=== PATIENT | male | born 1950 | race Caucasian/White ===

== ENCOUNTER → 2016-12-10 | Outpatient (REF) | payer MEDICARE, OTHER ==
[~2016-12-10] MED LIST: /WARF25TA; ACET65TA; ALBU17IN INH; ALBU83IN INH; ALTA10CA; ALTA10CA3 PO; BREO1INH3 INH; EPIP0.3I2 IM; FLOM5CAP PO; LIPI10TA; LIPI10TA PO; MOME50SP; NORT25CA2 PO; PERC5TAB8; PERC7.5T8; PROZ10CA; PROZ40CA; PROZ40CA PO; QVAR80AE7 IN; SENO8.6T5
[2016-12-10 11:25] LABS: BASO % 0.5 % (0.0-1.0); EOS # 0.1 K/mm3 (0.0-0.50); LARGE UNSTAINED CELL # 0.1 K/mm3 (0.0-0.4); LARGE UNSTAINED CELL % 1.8 % (0.0-4.0); LYMPH # 2.2 K/mm3 (1.5-4.5); LYMPH % 30.4 % (24.0-44.0); MEAN CORPUSCULAR HEMOGLOBIN 31.8 pg (27.0-33.0); MEAN CORPUSCULAR VOLUME 93.6 fl (80.0-96.0); MONO # 0.5 K/mm3 (0.0-0.8); MONO % 6.4 % (0.0-5.0); NEUTROPHILS # 4.1 K/mm3 (1.8-7.7); NEUTROPHILS % 58.9 % (36.0-66.0); PLATELET COUNT, AUTOMATED 229 k/mm3 (150-450)
[2016-12-10 11:28] LABS: INR 0.96
[2016-12-10 11:40] LABS: ALBUMIN/GLOBULIN RATIO 1.29 (1.00-1.93); ALKALINE PHOSPHATASE 74 U/L (45-117); ALT/SGPT 24 U/L (12-78); ANION GAP 8 MEQ/L (8-16); AST/SGOT 24 U/L (15-37); BILIRUBIN,TOTAL 0.7 MG/DL (0.2-1.0); BLOOD UREA NITROGEN 19 MG/DL (7-18); CALCIUM LEVEL 8.6 MG/DL (8.8-10.2); CARBON DIOXIDE LEVEL 30 MEQ/L (21-32); CHLORIDE LEVEL 103 MEQ/L (98-107); CREATININE FOR GFR 1.02 MG/DL (0.70-1.30); GLOMERULAR FILTRATION RATE > 60.0 (>49); GLUCOSE, FASTING 113 MG/DL (80-110); POTASSIUM SERUM 4.1 MEQ/L (3.5-5.1); SODIUM LEVEL 141 MEQ/L (136-145); TOTAL PROTEIN 7.1 GM/DL (6.4-8.2)
== END ==
LOC: M SFHCPLAZ 09:41
PROVIDERS: ATTEND Family Medicine
DX: Z01.818 Encounter for other preprocedural examination (principal); G47.33 Obstructive sleep apnea (adult) (pediatric); Z79.899 Other long term (current) drug therapy
CPT/HCPCS: 36415; 80053; 85025; 85610; 85730; 93005; G0463

== ENCOUNTER → 2016-12-28 | Day surgery (SDC) | payer MEDICARE, BC, OTHER ==
[~2016-12-28] VITALS: Ht 167.6 cm; Wt 93.0 kg
[~2016-12-28] MED LIST changes: +BUPIVACAINE HCL 0.5% 10 ML VIAL As Ordered ONE; +BUPIVACAINE/EPIN 0.5% 30 ML VIAL As Ordered ONE; +GLYCOPYRROLATE INJ 0.2 MG/ML 2 ML VIAL As Ordered ONE; +HYDROmorphone HCL 1 MG/ML SYRINGE (J1170) IV PRN; +LIDOCAINE 2% INJ 100 MG/5 ML SDV (FOR ANES.) As Ordered ONE; +LIDOCAINE W/EPINEPHRINE 1% 20ML VIAL As Ordered ONE; +LR 1,000 ML IV SCH; +MIDAZOLAM INJ 2 MG/2 ML VIAL (J2250) As Ordered ONE; +MORPHINE 10 MG/ML 1ML VIAL IV PRN; +NEOSTIGMINE 1MG/ML 5 ML SYRINGE (J2710) As Ordered ONE; +NORCO, ANEXSIA 5/325MG TABLET (HYDROcodone/ACETAMINOPHEN) As Ordered ONE; +NORCO, ANEXSIA 5/325MG TABLET (HYDROcodone/ACETAMINOPHEN) PO ONE; +ONDANSETRON 4MG/2ML VIAL (J2405) As Ordered ONE; +ONDANSETRON 4MG/2ML VIAL (J2405) IV PRN; +PERCOCET 5MG/325MG TAB PO PRN; +PROPOFOL 200 MG/20 ML VIAL As Ordered ONE; +ROCURONIUM BROMIDE 50 MG/5 ML VIAL As Ordered ONE; +dexameTHASONE 4 MG/ML 1ML VIAL (J1100) As Ordered ONE; +fentaNYL 100 MCG/2 ML INJECTION (J3010) IV PRN; +fentaNYL 250 MCG/5 ML INJECTION (J3010) As Ordered ONE
--- NOTE | 2016-12-28 11:36 | RO ---
DATE OF PROCEDURE: 12/28/2016 PREPROCEDURE DIAGNOSIS: Sleep apnea. POSTPROCEDURE DIAGNOSIS: Sleep apnea. PROCEDURE: Lateral pharyngoplasty. SURGEON: Anastacio Quintero MD PRODUCTION ANALYST: ANESTHESIA: DESCRIPTION OF PROCEDURE: Under general anesthesia with the patient intubated, the patient was draped in the usual manner. I infiltrated the area with lidocaine, epinephrine and Marcaine. A Walsh-Homero mouth gag was inserted. Because of the size of the mouth, I had to reposition the blade long term through the procedure. I started first on the left side. I made an incision using the Coblator and dissecting down to the tonsil and then dissected the tonsil free. This using a setting of 6 and 4. I cauterized the base at a setting of 6 and 4. Then using the cautery, I elevated a muscle flap from the posterior pillar. I dissected the flap from inferior to superior. I put a suture within the flap using a #3-0 Vicryl. I then sutured the posterior to the molar of the left side of the maxilla. The patient tolerated the procedure well. I did trim the uvula because it was long. I then repositioned the blade and performed the same procedure on the opposite side. Any areas of bleeding I used the Coblator at 6 and 4. Once this was completed, I passed a nasogastric tube to suction the upper esophagus. The patient tolerated the procedure well and was extubated and transferred to the recovery room in excellent condition. No blood loss.
[2016-12-28 13:20] VITALS: BP 177/98
== END | disposition home or self-care (01) ==
LOC: M SDC 06:45
PROVIDERS: ATTEND Otolaryngology
DX: G47.30 Sleep apnea, unspecified (principal); I10 Essential (primary) hypertension; E78.5 Hyperlipidemia, unspecified; K44.9 Diaphragmatic hernia without obstruction or gangrene; J45.909 Unspecified asthma, uncomplicated; Z79.51 Long term (current) use of inhaled steroids; N40.0 Benign prostatic hyperplasia without lower urinary tract symptoms; Z88.0 Allergy status to penicillin; Z79.899 Other long term (current) drug therapy; K21.9 Gastro-esophageal reflux disease without esophagitis; F32.9 Major depressive disorder, single episode, unspecified
CPT/HCPCS: 42826; 88302; J1100; J2250; J2405; J2710; J3010

== ENCOUNTER → 2017-01-13 | Outpatient (REF) | payer MEDICARE, OTHER ==
[~2017-01-13] MED LIST changes: -BUPIVACAINE HCL 0.5% 10 ML VIAL As Ordered ONE; -BUPIVACAINE/EPIN 0.5% 30 ML VIAL As Ordered ONE; -GLYCOPYRROLATE INJ 0.2 MG/ML 2 ML VIAL As Ordered ONE; -HYDROmorphone HCL 1 MG/ML SYRINGE (J1170) IV PRN; -LIDOCAINE 2% INJ 100 MG/5 ML SDV (FOR ANES.) As Ordered ONE; -LIDOCAINE W/EPINEPHRINE 1% 20ML VIAL As Ordered ONE; -LR 1,000 ML IV SCH; -MIDAZOLAM INJ 2 MG/2 ML VIAL (J2250) As Ordered ONE; -MORPHINE 10 MG/ML 1ML VIAL IV PRN; -NEOSTIGMINE 1MG/ML 5 ML SYRINGE (J2710) As Ordered ONE; -NORCO, ANEXSIA 5/325MG TABLET (HYDROcodone/ACETAMINOPHEN) As Ordered ONE; -NORCO, ANEXSIA 5/325MG TABLET (HYDROcodone/ACETAMINOPHEN) PO ONE; -ONDANSETRON 4MG/2ML VIAL (J2405) As Ordered ONE; -ONDANSETRON 4MG/2ML VIAL (J2405) IV PRN; -PERCOCET 5MG/325MG TAB PO PRN; -PROPOFOL 200 MG/20 ML VIAL As Ordered ONE; -ROCURONIUM BROMIDE 50 MG/5 ML VIAL As Ordered ONE; -dexameTHASONE 4 MG/ML 1ML VIAL (J1100) As Ordered ONE; -fentaNYL 100 MCG/2 ML INJECTION (J3010) IV PRN; -fentaNYL 250 MCG/5 ML INJECTION (J3010) As Ordered ONE
[2017-01-13 13:12] LABS: ALBUMIN 3.5 GM/DL (3.2-5.2); ALBUMIN/GLOBULIN RATIO 1.17 (1.00-1.93); ALKALINE PHOSPHATASE 75 U/L (45-117); ALT/SGPT 28 U/L (12-78); ANION GAP 8 MEQ/L (8-16); AST/SGOT 21 U/L (15-37); BILIRUBIN,TOTAL 0.3 MG/DL (0.2-1.0); BLOOD UREA NITROGEN 19 MG/DL (7-18); CARBON DIOXIDE LEVEL 29 MEQ/L (21-32); CHLORIDE LEVEL 102 MEQ/L (98-107); CHOLESTEROL LEVEL 131 MG/DL (<200); CREATININE FOR GFR 0.93 MG/DL (0.70-1.30); FREE T4 0.99 NG/DL (0.76-1.46); GLOMERULAR FILTRATION RATE > 60.0 (>49); GLUCOSE, FASTING 96 MG/DL (80-110); POTASSIUM SERUM 4.3 MEQ/L (3.5-5.1); SODIUM LEVEL 139 MEQ/L (136-145); TOTAL PROTEIN 6.5 GM/DL (6.4-8.2); TRIGLYCERIDES LEVEL 209 MG/DL (<150)
== END ==
LOC: M SFHCPLAZ 08:25
PROVIDERS: ATTEND Family Medicine
DX: E78.5 Hyperlipidemia, unspecified (principal); R73.01 Impaired fasting glucose; N40.1 Benign prostatic hyperplasia with lower urinary tract symptoms; Z12.5 Encounter for screening for malignant neoplasm of prostate
CPT/HCPCS: 36415; 80053; 80061; 83036; 84439; 84443; G0103

== ENCOUNTER → 2017-01-24 | Outpatient (CLI) | payer MEDICARE, BC, OTHER ==
--- NOTE | 2017-01-24 14:18 | REP ---
MR BRAIN WITHOUT AND WITH CONTRAST: 01/24/2017 COMPARISON: 01/15/2016, 06/25/2013, CT brain 07/19/2013. CLINICAL HISTORY: Status post resection of pituitary adenoma. TECHNIQUE: Sagittal T1 with axial T2 and FLAIR, diffusion weighted images and ADC mapping sequences and a thin section coronal T1 sequence through the pituitary fossa. After infusion of 9 mL of ProHance (half-dose because of GFR less than 60) post gadolinium T1 axial coronal and sagittal images were obtained. FINDINGS: The ventricles are midline symmetric and dilated. They are out of proportion to the mild cerebral atrophy. Third and fourth ventricles are also dilated but all of this for ventricular size and appearance is unchanged from the prior studies. There is some punctate periventricular deep central and subcortical white matter hyperintense T2 and FLAIR foci bilaterally in the cerebral hemispheres. This represents some small vessel ischemic change. No acute infarct, intraparenchymal mass, mass effect, hemorrhage or edema. No extra-axial fluid collection noted. Cortical stripe preserved. The patient is status post a transsphenoidal pituitary resection with the appearance of the pituitary fossa and optic chiasm unchanged. There is thinning of the corpus callosum by the distended ventricular system. There is very mild cerebellar atrophy with basal cisterns intact and no posterior fossa hemorrhage. Seventh/eighth cranial nerve complexes and mastoids symmetric and normal. The visualized sinuses show a few anterior ethmoid air cells with mucosal thickening. After contrast administration, there is no abnormal enhancement of the pituitary fossa or elsewhere. The base of the brain, meninges, vascular structures, soft tissues about the orbits and visualized face were also without abnormal enhancement. No enhancing mass. IMPRESSION: 1. Stable exam with prior resection of the pituitary adenoma with a small amount of residual pituitary tissue in the sella unchanged. 2. No evidence of new findings. There is dilatation of the lateral, third and fourth ventricles out of portion to very minimal atrophy. Presence of normal pressure hydrocephalous may again be suspected. 3. Some very minor periventricular deep white matter along the subcortical foci of hyperintense T2 and FLAIR signal suggesting small vessel ischemic change. Stable exam Signed by Christian Lane MD 01/24/2017 04:54 P
== END ==
LOC: M RAD 12:16
PROVIDERS: ATTEND Neurological Surgery
DX: D48.7 Neoplasm of uncertain behavior of other specified sites (principal)
CPT/HCPCS: 70553; A9576

== ENCOUNTER → 2017-05-05 | Outpatient (REF) | payer MEDICARE, OTHER ==
[~2017-05-05] MED LIST changes: -ALTA10CA3 PO; +ALTA1CAP4 PO; +QVAR1AER2 IN; -QVAR80AE7 IN
[2017-05-05 12:19] LABS: BASO % 0.3 % (0.0-1.0); EOS # 0.2 K/mm3 (0.0-0.50); EOS % 2.1 % (0.0-3.0); LARGE UNSTAINED CELL # 0.1 K/mm3 (0.0-0.4); LARGE UNSTAINED CELL % 1.9 % (0.0-4.0); LYMPH # 2.3 K/mm3 (1.5-4.5); LYMPH % 33.3 % (24.0-44.0); MEAN CORPUSCULAR HEMOGLOBIN 31.5 pg (27.0-33.0); MEAN CORPUSCULAR HGB CONC 34.1 g/dl (32.0-36.5); MEAN CORPUSCULAR VOLUME 92.5 fl (80.0-96.0); MONO # 0.4 K/mm3 (0.0-0.8); NEUTROPHILS # 3.9 K/mm3 (1.8-7.7); NEUTROPHILS % 56.3 % (36.0-66.0); PLATELET COUNT, AUTOMATED 260 k/mm3 (150-450); RED CELL DISTRIBUTION WIDTH 12.6 % (11.5-14.5); WHITE BLOOD COUNT 6.9 K/mm3 (4.0-10.0)
[2017-05-05 12:57] LABS: ALBUMIN/GLOBULIN RATIO 1.18 (1.00-1.93); ALKALINE PHOSPHATASE 81 U/L (45-117); ALT/SGPT 19 U/L (12-78); ANION GAP 6 MEQ/L (8-16); AST/SGOT 24 U/L (15-37); BILIRUBIN,TOTAL 0.8 MG/DL (0.2-1.0); BLOOD UREA NITROGEN 24 MG/DL (7-18); CALCIUM LEVEL 8.9 MG/DL (8.8-10.2); CARBON DIOXIDE LEVEL 30 MEQ/L (21-32); CHLORIDE LEVEL 105 MEQ/L (98-107); CREATININE FOR GFR 0.92 MG/DL (0.70-1.30); GLOMERULAR FILTRATION RATE > 60.0 (>49); GLUCOSE, FASTING 93 MG/DL (80-110); POTASSIUM SERUM 4.3 MEQ/L (3.5-5.1); SODIUM LEVEL 141 MEQ/L (136-145); TOTAL PROTEIN 7.4 GM/DL (6.4-8.2)
== END ==
LOC: M SFHCPLAZ 09:04
PROVIDERS: ATTEND Family Medicine
DX: I10 Essential (primary) hypertension (principal); R73.01 Impaired fasting glucose; N40.1 Benign prostatic hyperplasia with lower urinary tract symptoms
CPT/HCPCS: 36415; 80053; 81001; 82043; 83036; 85025; G0103

== ENCOUNTER → 2017-06-06 | Outpatient (REF) | payer MEDICARE, OTHER ==
[2017-06-06 14:51] LABS: BASO % 0.2 % (0.0-1.0); EOS # 0.2 10^3/uL (0.0-0.50); IMMATURE GRANULOCYTE % 0.4 % (0-0); LYMPH # 2.6 10^3/uL (1.5-4.5); MEAN CORPUSCULAR HGB CONC 34.2 g/dl (32.0-36.5); MEAN CORPUSCULAR VOLUME 90.7 fl (80.0-96.0); MONO # 0.5 10^3/uL (0.0-0.8); NEUTROPHILS # 4.7 10^3/uL (1.8-7.7); NEUTROPHILS % 58.4 % (36.0-66.0); PLATELET COUNT, AUTOMATED 229 10^3/uL (150-450); RED CELL DISTRIBUTION WIDTH 12.4 % (11.5-14.5); WHITE BLOOD COUNT 8.1 10^3/uL (4.0-10.0)
[2017-06-06 15:35] LABS: ALBUMIN 3.8 GM/DL (3.2-5.2); PERCENT SATURATION 29.5 % (19.7-50.0)
== END ==
LOC: M LABDRWAD 12:19
PROVIDERS: ATTEND Orthopaedic Surgery
DX: Z01.818 Encounter for other preprocedural examination (principal); M16.12 Unilateral primary osteoarthritis, left hip; D63.8 Anemia in other chronic diseases classified elsewhere

== ENCOUNTER → 2017-09-15 | Outpatient (REF) | payer MEDICARE, OTHER ==
[2017-09-15 12:18] LABS: ESTIMATED AVERAGE GLUCOSE 114 MG/DL (60-110); HEMOGLOBIN A1c 5.6 %
[2017-09-15 12:28] LABS: ALBUMIN 3.8 GM/DL (3.2-5.2); ALBUMIN/GLOBULIN RATIO 1.06 (1.00-1.93); ALKALINE PHOSPHATASE 81 U/L (45-117); ALT/SGPT 18 U/L (12-78); ANION GAP 5 MEQ/L (8-16); AST/SGOT 17 U/L (7-37); BILIRUBIN,TOTAL 0.5 MG/DL (0.2-1.0); BLOOD UREA NITROGEN 26 MG/DL (7-18); C REACTIVE PROTEIN QUANTITATIV < 0.30 MG/DL (0.00-0.30); CALCIUM LEVEL 8.9 MG/DL (8.8-10.2); CARBON DIOXIDE LEVEL 31 MEQ/L (21-32); CHLORIDE LEVEL 105 MEQ/L (98-107); CHOLESTEROL LEVEL 210 MG/DL (<200); CPK CREATINE PHOSPHOKINASE 84 U/L (39-308); CREATININE FOR GFR 1.01 MG/DL (0.70-1.30); GLOMERULAR FILTRATION RATE > 60.0 (>49); GLUCOSE, FASTING 98 MG/DL (80-110); HDL CHOLESTEROL 56 MG/DL (>40); LDL CHOLESTEROL 110.8 MG/DL (<100); NON-HDL-C 154 MG/DL; POTASSIUM SERUM 4.3 MEQ/L (3.5-5.1); SODIUM LEVEL 141 MEQ/L (136-145); TOTAL PROTEIN 7.4 GM/DL (6.4-8.2); TRIGLYCERIDES LEVEL 216 MG/DL (<150)
== END ==
LOC: M SFHCPLAZ 08:10
DX: E78.5 Hyperlipidemia, unspecified (principal); R73.01 Impaired fasting glucose
CPT/HCPCS: 82550

== ENCOUNTER → 2017-09-22 | Outpatient (REF) | payer MEDICARE, OTHER | LOC: M SFHCPLAZ 09:18 | DX: N40.1 Benign prostatic hyperplasia with lower urinary tract symptoms (principal) | CPT/HCPCS: 84154 ==

== ENCOUNTER → 2017-09-23 | Outpatient (REF) | payer MEDICARE, OTHER ==
[2017-09-24 15:15] LABS: PSA % FREE 19.8 % (.); PSA FREE 0.93 ng/mL; PSA TOTAL 4.7 ng/mL (0.0-4.0)
== END ==
LOC: M SFHCPLAZ 13:02
DX: N40.1 Benign prostatic hyperplasia with lower urinary tract symptoms (principal)
CPT/HCPCS: 84154

== ENCOUNTER → 2017-11-29 | Outpatient (CLI) | payer MEDICARE, OTHER, BC | LOC: M ADAMS 11:24 | DX: J20.9 Acute bronchitis, unspecified (principal) | CPT/HCPCS: 71046 ==

== ENCOUNTER → 2018-01-09 | Outpatient (REF) | payer MEDICARE, OTHER ==
[2018-01-15 08:06] LABS: TITANIUM LEVEL SERUM/PLASMA <10.0 ng/mL (<10.0)
== END ==
LOC: M LABDRAWP 12:21
DX: N18.2 Chronic kidney disease, stage 2 (mild) (principal); R73.01 Impaired fasting glucose; R97.20 Elevated prostate specific antigen [PSA]; T56.891A Toxic effect of other metals, accidental (unintentional), initial encounter

== ENCOUNTER → 2018-01-09 | Outpatient (REF) | payer MEDICARE, OTHER ==
[2018-01-09 12:19] LABS: BASO % 0.5 % (0.0-1.0); EOS # 0.1 10^3/uL (0.0-0.50); EOS % 1.8 % (0.0-3.0); HEMATOCRIT 43.4 % (42.0-52.0); HEMOGLOBIN 14.7 g/dl (13.5-17.5); IMMATURE GRANULOCYTE % 0.4 % (0-3.0); LYMPH % 35.8 % (24.0-44.0); MEAN CORPUSCULAR HEMOGLOBIN 31.5 pg (27.0-33.0); MEAN CORPUSCULAR HGB CONC 33.9 g/dl (32.0-36.5); MEAN CORPUSCULAR VOLUME 92.9 fl (80.0-96.0); MONO # 0.4 10^3/uL (0.0-0.8); MONO % 7.2 % (0.0-5.0); NEUTROPHILS # 3.1 10^3/uL (1.8-7.7); NEUTROPHILS % 54.3 % (36.0-66.0); PLATELET COUNT, AUTOMATED 240 10^3/uL (150-450); RED BLOOD COUNT 4.67 10^6/uL (4.30-6.10); RED CELL DISTRIBUTION WIDTH 13.4 % (11.5-14.5); WHITE BLOOD COUNT 5.7 10^3/uL (4.0-10.0)
[2018-01-09 12:35] LABS: ESTIMATED AVERAGE GLUCOSE 131 MG/DL (60-110); HEMOGLOBIN A1c 6.2 %
[2018-01-09 12:47] LABS: ALBUMIN 3.9 GM/DL (3.2-5.2); ALBUMIN/GLOBULIN RATIO 1.18 (1.00-1.93); ALKALINE PHOSPHATASE 70 U/L (45-117); ALT/SGPT 19 U/L (12-78); ANION GAP 7 MEQ/L (8-16); AST/SGOT 22 U/L (7-37); BILIRUBIN,TOTAL 0.7 MG/DL (0.2-1.0); BLOOD UREA NITROGEN 21 MG/DL (7-18); CALCIUM LEVEL 8.8 MG/DL (8.8-10.2); CARBON DIOXIDE LEVEL 27 MEQ/L (21-32); CHLORIDE LEVEL 107 MEQ/L (98-107); CREATININE FOR GFR 1.06 MG/DL (0.70-1.30); GLOMERULAR FILTRATION RATE > 60.0 (>49); GLUCOSE, FASTING 104 MG/DL (70-100); MAGNESIUM LEVEL 2.3 MG/DL (1.8-2.4); POTASSIUM SERUM 4.2 MEQ/L (3.5-5.1); PROSTATIC SPECIFIC AG MONITOR 3.69 NG/ML (< 4.0); SODIUM LEVEL 141 MEQ/L (136-145); TOTAL PROTEIN 7.2 GM/DL (6.4-8.2)
[2018-01-11 14:15] LABS: INSULIN LEVEL 18.8 uIU/mL (2.6-24.9)
== END ==
LOC: M SFHCPLAZ 08:58
DX: N18.2 Chronic kidney disease, stage 2 (mild) (principal); R73.01 Impaired fasting glucose; R97.20 Elevated prostate specific antigen [PSA]; T56.891A Toxic effect of other metals, accidental (unintentional), initial encounter
CPT/HCPCS: 83525

== ENCOUNTER → 2018-02-07 | Outpatient (REF) | payer MEDICARE, OTHER ==
[2018-02-07 13:46] LABS: CREATININE FOR GFR 1.06 MG/DL (0.70-1.30); GLOMERULAR FILTRATION RATE > 60.0 (>49)
[2018-02-07 13:46] LABS: BLOOD UREA NITROGEN 19 MG/DL (7-18)
== END ==
LOC: M LABDRWAD 13:30
DX: Z13.89 Encounter for screening for other disorder (principal); D49.7 Neoplasm of unspecified behavior of endocrine glands and other parts of nervous system
CPT/HCPCS: 82565

== ENCOUNTER → 2018-02-14 | Outpatient (CLI) | payer MEDICARE, BC, OTHER ==
[~2018-02-14] MED LIST changes: -/WARF25TA; -ACET65TA; -ALBU17IN INH; -ALBU83IN INH; -ALTA10CA; -ALTA1CAP4 PO; -BREO1INH3 INH; -EPIP0.3I2 IM; -FLOM5CAP PO; -LIPI10TA; -LIPI10TA PO; -MOME50SP; -NORT25CA2 PO; -PERC5TAB8; -PERC7.5T8; +PROHANCE 279.3MG/ML 15ML VIAL (A9576) As Ordered; +PROHANCE 279.3MG/ML 5ML VIAL (A9576) As Ordered; -PROZ10CA; -PROZ40CA; -PROZ40CA PO; -QVAR1AER2 IN; -SENO8.6T5
== END ==
LOC: M RAD 13:49
DX: I67.82 Cerebral ischemia (principal); Z86.018 Personal history of other benign neoplasm
CPT/HCPCS: A9576

== ENCOUNTER → 2018-02-20 | Outpatient (REF) | payer MEDICARE, OTHER | LOC: M SFHCPLAZ 13:00 | DX: E78.5 Hyperlipidemia, unspecified (principal); R73.01 Impaired fasting glucose; N40.1 Benign prostatic hyperplasia with lower urinary tract symptoms; Z53.8 Procedure and treatment not carried out for other reasons ==

== ENCOUNTER → 2018-04-18 | Outpatient (CLI) | payer MEDICARE, BC, OTHER | LOC: M SLEEP 19:43 | DX: G47.33 Obstructive sleep apnea (adult) (pediatric) (principal) | CPT/HCPCS: 95811 ==

== ENCOUNTER → 2018-06-26 | Outpatient (REF) | payer MEDICARE, OTHER ==
[2018-06-26 12:57] LABS: APPEARANCE, URINE CLEAR (CLEAR); BACTERIA, URINE AUTO NEGATIVE (NEGATIVE); BILIRUBIN, URINE AUTO NEGATIVE (NEGATIVE); BLOOD, URINE BLOOD NEGATIVE (NEGATIVE); COLOR, URINE YELLOW (YELLOW); GLUCOSE, URINE (UA) AUTO NEGATIVE (NEGATIVE); KETONE, URINE AUTO NEGATIVE (NEGATIVE); LEUKOCYTE ESTERASE, URINE AUTO NEGATIVE (NEGATIVE); MUCUS, URINE SMALL (NEGATIVE); NITRITE, URINE AUTO NEGATIVE (NEGATIVE); PROTEIN, URINE AUTO NEGATIVE (NEGATIVE); RBC, URINE AUTO 1 /HPF (0-3); SPECIFIC GRAVITY URINE AUTO 1.023 (1.002-1.035); SQUAMOUS EPITHELIAL CELL UR AU 0 /HPF (0-6); UROBILINOGEN, URINE AUTO 0.2 mg/dL (0.0-2.0); WBC, URINE AUTO 0 /HPF (0-3)
[2018-06-26 13:12] LABS: ESTIMATED AVERAGE GLUCOSE 134 MG/DL (60-110); HEMOGLOBIN A1c 6.3 %
[2018-06-26 13:19] LABS: ALBUMIN 3.7 GM/DL (3.2-5.2); ALBUMIN/GLOBULIN RATIO 1.09 (1.00-1.93); ALKALINE PHOSPHATASE 79 U/L (45-117); ALT/SGPT 21 U/L (12-78); ANION GAP 7 MEQ/L (8-16); AST/SGOT 19 U/L (7-37); BILIRUBIN,TOTAL 0.7 MG/DL (0.2-1.0); BLOOD UREA NITROGEN 22 MG/DL (7-18); C REACTIVE PROTEIN QUANTITATIV < 0.30 MG/DL (0.00-0.30); CALCIUM LEVEL 8.5 MG/DL (8.8-10.2); CARBON DIOXIDE LEVEL 28 MEQ/L (21-32); CHLORIDE LEVEL 105 MEQ/L (98-107); CHOLESTEROL LEVEL 187 MG/DL (<200); CHOLESTEROL RISK RATIO 4.452 (<5); CPK CREATINE PHOSPHOKINASE 155 U/L (39-308); CREATININE FOR GFR 0.99 MG/DL (0.70-1.30); GLOMERULAR FILTRATION RATE > 60.0 (>49); GLUCOSE, FASTING 97 MG/DL (70-100); HDL CHOLESTEROL 42 MG/DL (>40); LDL CHOLESTEROL 92 MG/DL (<100); NON-HDL-C 145 MG/DL; POTASSIUM SERUM 4.2 MEQ/L (3.5-5.1); PSA SCREENING 3.52 NG/ML (< 4.0); SODIUM LEVEL 140 MEQ/L (136-145); TOTAL PROTEIN 7.1 GM/DL (6.4-8.2); TRIGLYCERIDES LEVEL 263 MG/DL (<150)
[2018-06-26 13:41] LABS: MALB URINE SIEMENS 20.3 MG/L
[2018-06-26 13:46] LABS: MAU/CREAT RATIO 11.2 MCG/MG (0.0-30.0)
== END ==
LOC: M SFHCPLAZ 09:22 → M SFHCADAM 09:40
DX: E78.5 Hyperlipidemia, unspecified (principal); R73.01 Impaired fasting glucose; N40.1 Benign prostatic hyperplasia with lower urinary tract symptoms; Z12.5 Encounter for screening for malignant neoplasm of prostate
CPT/HCPCS: 82550

== ENCOUNTER 2018-09-29 08:52 | Emergency (ER) | payer MEDICARE, BC, OTHER ==
[~2018-09-29] VITALS: Ht 167.6 cm; Wt 93.2 kg
[2018-09-29 08:52] VITALS: BP 158/80
[~2018-09-29 08:52] MED LIST changes: +/WARF25TA; +ACET65TA; +ALBU17IN INH; +ALBU83IN INH; +ALTA10CA; +ALTA1CAP4 PO; +BREO1INH3 INH; +EPIP0.3I2 IM; +FLOM0.4C39 PO; +LIPI10TA; +LIPI10TA PO; +MOME50SP; +NORT25CA2 PO; +PERC5TAB8; +PERC7.5T8; -PROHANCE 279.3MG/ML 15ML VIAL (A9576) As Ordered; -PROHANCE 279.3MG/ML 5ML VIAL (A9576) As Ordered; +PROZ10CA; +PROZ40CA; +PROZ40CA PO; +QVAR80AE10 IN; +SENO8.6T5
[2018-09-29] MEDS ORDERED: ASPI81TA85 PO (08:59)
--- NOTE | 2018-09-29 09:58 | REP ---
Left humerus: Two views. History: Injury in a fall. Findings: Two views of the left humerus demonstrate fairly advanced osteoarthritis of the left glenohumeral articulation. There is some widening of the AC joint. Question prior surgery. No fractures seen. There is medial epicondylar spurring and lateral epicondylar spurring of the distal humerus. Impression: Degenerative changes. No fracture seen. Electronically Signed by Tanvir Mcleod MD 09/29/2018 09:50 A
--- NOTE | 2018-09-29 10:26 | REP ---
LEFT SHOULDER, THREE VIEWS: HISTORY: Fall. There is no acute fracture or dislocation. There is an old fracture of the head of the humerus with deformity of the humeral head. There is mild narrowing of the glenohumeral joint space with associated irregularity of the glenoid and osteophyte formation. There is minimal widening of the acromioclavicular joint space. IMPRESSION: Degenerative change as described above. Electronically Signed by Linden Story MD 09/29/2018 10:30 A
== END 2018-09-29 10:23 | disposition home or self-care (01) ==
LOC: M ED 08:52
DX: M19.012 Primary osteoarthritis, left shoulder (principal); S40.022A Contusion of left upper arm, initial encounter; W19.XXXA Unspecified fall, initial encounter; Y92.838 Other recreation area as the place of occurrence of the external cause; I10 Essential (primary) hypertension; J45.909 Unspecified asthma, uncomplicated; K44.9 Diaphragmatic hernia without obstruction or gangrene; N40.0 Benign prostatic hyperplasia without lower urinary tract symptoms; F33.9 Major depressive disorder, recurrent, unspecified; Z79.899 Other long term (current) drug therapy; Z79.82 Long term (current) use of aspirin; Z88.0 Allergy status to penicillin; Z88.1 Allergy status to other antibiotic agents; Z88.8 Allergy status to other drugs, medicaments and biological substances

== ENCOUNTER → 2018-11-21 | Outpatient (REF) | payer MEDICARE, OTHER ==
[~2018-11-21] MED LIST changes: +ASPI81TA85 PO
[2018-11-21 12:34] LABS: BASO % 0.5 % (0.0-1.0); EOS # 0.2 10^3/uL (0.0-0.50); HEMATOCRIT 48.1 % (42.0-52.0); HEMOGLOBIN 16.1 g/dl (13.5-17.5); LYMPH # 2.7 10^3/uL (1.5-4.5); LYMPH % 36.6 % (24.0-44.0); MEAN CORPUSCULAR HGB CONC 33.5 g/dl (32.0-36.5); MEAN CORPUSCULAR VOLUME 95.6 fl (80.0-96.0); MONO # 0.5 10^3/uL (0.0-0.8); MONO % 6.5 % (0.0-5.0); NEUTROPHILS % 54.1 % (36.0-66.0); PLATELET COUNT, AUTOMATED 225 10^3/uL (150-450); RED BLOOD COUNT 5.03 10^6/uL (4.30-6.10); WHITE BLOOD COUNT 7.4 10^3/uL (4.0-10.0)
[2018-11-21 12:53] LABS: ALBUMIN 3.9 GM/DL (3.2-5.2); ALT/SGPT 24 U/L (12-78); BILIRUBIN,TOTAL 0.9 MG/DL (0.2-1.0); BLOOD UREA NITROGEN 28 MG/DL (7-18); CALCIUM LEVEL 8.9 MG/DL (8.8-10.2); CARBON DIOXIDE LEVEL 31 MEQ/L (21-32); CHLORIDE LEVEL 103 MEQ/L (98-107); CREATININE FOR GFR 1.09 MG/DL (0.70-1.30); GLOMERULAR FILTRATION RATE > 60.0 (>49); GLUCOSE, FASTING 93 MG/DL (70-100); POTASSIUM SERUM 4.6 MEQ/L (3.5-5.1); SODIUM LEVEL 140 MEQ/L (136-145)
== END ==
LOC: M SFHCADAM 10:27
PROVIDERS: ATTEND Family Medicine
DX: I10 Essential (primary) hypertension (principal); R73.01 Impaired fasting glucose

== ENCOUNTER → 2019-02-13 | Outpatient (REF) | payer MEDICARE, OTHER ==
[~2019-02-13] MED LIST changes: -/WARF25TA; +COUM1TAB18
[2019-02-13 14:47] LABS: BLOOD UREA NITROGEN 24 MG/DL (7-18); CREATININE FOR GFR 1.03 MG/DL (0.70-1.30); GLOMERULAR FILTRATION RATE > 60.0 (>49)
== END ==
LOC: M LABDRWAD 13:01
PROVIDERS: ATTEND Neurological Surgery
DX: Z13.89 Encounter for screening for other disorder (principal); D49.7 Neoplasm of unspecified behavior of endocrine glands and other parts of nervous system

== ENCOUNTER → 2019-02-16 | Outpatient (CLI) | payer MEDICARE, BC, OTHER ==
[~2019-02-16] MED LIST changes: +PROHANCE 279.3MG/ML 5ML VIAL (A9576) As Ordered ONE
--- NOTE | 2019-02-16 17:28 | REP ---
MR BRAIN WITHOUT AND WITH CONTRAST: HISTORY: Pituitary tumor. CONTRAST: ProHance 9 mL. COMPARISON: 01/24/2017 and 02/14/2018. Areas of increased signal intensity on T2 weighted images are present in the periventricular and subcortical white matter. This represents small vessel ischemic disease. There is no intraparenchymal hemorrhage, infarct, or midline shift. There is dilatation of the ventricular system and cortical sulci. The degree of ventricular dilatation is out of proportion to that seen in the overlying cortical sulci. There is no extracerebral collection. The patient is status-post resection of a pituitary adenoma. A small amount of residual pituitary tissue is present. There is homogenous enhancement with contrast. The infundibulum is midline. The cavernous sinuses, optic chiasm and hypothalamus are normal in appearance. The visualized sinuses are clear. IMPRESSION: 1. Minimal small vessel ischemic disease. 2. There is no recurrent pituitary tumor. 3. There is dilatation of the ventricular system that is out of proportion to that seem in the overlying cortical sulci. This may represent normal pressure hydrocephalus. This is unchanged compared to the previous study. Electronically Signed by Linden Story MD 02/16/2019 05:36 P
== END ==
LOC: M RAD 12:15
PROVIDERS: ATTEND Physician Assistant Medical
DX: I67.82 Cerebral ischemia (principal); G93.89 Other specified disorders of brain
CPT/HCPCS: 70553; A9576

== ENCOUNTER → 2019-03-19 | Outpatient (REF) | payer MEDICARE, OTHER ==
[~2019-03-19] MED LIST changes: -PROHANCE 279.3MG/ML 5ML VIAL (A9576) As Ordered ONE
[2019-03-19 13:06] LABS: APPEARANCE, URINE CLEAR (CLEAR); BACTERIA, URINE AUTO NEGATIVE (NEGATIVE); BILIRUBIN, URINE AUTO NEGATIVE (NEGATIVE); BLOOD, URINE BLOOD NEGATIVE (NEGATIVE); COLOR, URINE YELLOW (YELLOW); GLUCOSE, URINE (UA) AUTO NEGATIVE (NEGATIVE); KETONE, URINE AUTO NEGATIVE (NEGATIVE); LEUKOCYTE ESTERASE, URINE AUTO NEGATIVE (NEGATIVE); MUCUS, URINE SMALL (NEGATIVE); NITRITE, URINE AUTO NEGATIVE (NEGATIVE); PROTEIN, URINE AUTO NEGATIVE (NEGATIVE); RBC, URINE AUTO 0 /HPF (0-3); SPECIFIC GRAVITY URINE AUTO 1.016 (1.002-1.035); SQUAMOUS EPITHELIAL CELL UR AU 0 /HPF (0-6); UROBILINOGEN, URINE AUTO 0.2 mg/dL (0.0-2.0); WBC, URINE AUTO 0 /HPF (0-3)
[2019-03-19 13:13] LABS: ALBUMIN 3.7 GM/DL (3.2-5.2); ALT/SGPT 21 U/L (12-78); BILIRUBIN,TOTAL 0.5 MG/DL (0.2-1.0); BLOOD UREA NITROGEN 19 MG/DL (7-18); CALCIUM LEVEL 8.8 MG/DL (8.8-10.2); CARBON DIOXIDE LEVEL 29 MEQ/L (21-32); CHLORIDE LEVEL 105 MEQ/L (98-107); CREATININE FOR GFR 0.99 MG/DL (0.70-1.30); GLOMERULAR FILTRATION RATE > 60.0 (>49); GLUCOSE, FASTING 102 MG/DL (70-100); MAGNESIUM LEVEL 2.3 MG/DL (1.8-2.4); POTASSIUM SERUM 4.3 MEQ/L (3.5-5.1); SODIUM LEVEL 140 MEQ/L (136-145); TOTAL PROTEIN 6.5 GM/DL (6.4-8.2)
[2019-03-19 13:21] LABS: VITAMIN B12 LEVEL 352 PG/ML (247-911)
[2019-03-19 13:57] LABS: MALB URINE SIEMENS 8.5 MG/L; MAU/CREAT RATIO 5.7 MCG/MG (0.0-30.0)
[2019-03-19 14:20] LABS: HEMOGLOBIN A1c 6.1 %
[2019-03-21 11:34] LABS: ALBUMIN 4.03 GM/DL (3.29-5.55); ALPHA-1-GLOBULIN % 3.8 % (2.9-4.9); ALPHA-1-GLOBULINS 0.25 GM/DL (0.17-0.41); ALPHA-2-GLOBULINS 0.62 GM/DL (0.42-0.99); ALPHA-2-GLOBULINS % 9.6 % (7.1-11.8); BETA-1-GLOBULINS 0.45 GM/DL (0.28-0.60); BETA-1-GLOBULINS % 6.9 % (4.7-7.2); BETA-2-GLOBULINS 0.36 GM/DL (0.19-0.55); BETA-2-GLOBULINS % 5.6 % (3.2-6.5); GAMMA GLOBULIN % 12.1 % (11.1-18.8); GAMMA GLOBULINS 0.79 GM/DL (0.65-1.58)
== END ==
LOC: M SFHCADAM 08:31
PROVIDERS: ATTEND Family Medicine
DX: I10 Essential (primary) hypertension (principal); R73.01 Impaired fasting glucose; D75.89 Other specified diseases of blood and blood-forming organs

== ENCOUNTER → 2019-12-10 | Outpatient (CLI) | payer MEDICARE, OTHER ==
--- NOTE | 2019-12-10 14:07 | REP ---
Cervical spine series: Eight views. History: Cervical spondylosis. Findings: There is straightening of the normal cervical lordosis. Flexion extension lateral views show some limitation of range of motion but no subluxation or instability. Vertebral body heights are preserved. There is degenerative disc narrowing at the C3-4 C5-6 and C6-7. This is most pronounced at the C6-7 level. Anterior and some posterior osteophytic ridging is seen. Open mouth odontoid view is unremarkable. AP view shows osteoarthritic facet hypertrophy and sclerosis bilaterally including the left C2-3 N C5-6 and the right C4-5 levels. Oblique images demonstrate neural foraminal encroachment on the left at C5-6 from facet hypertrophy and on the right at C3-4 and C6-7 from uncovertebral spurring. No bony destructive lesion. Impression: Degenerative disc and osteoarthritic facet disease as noted above. Electronically Signed by Tanvir Mcleod MD 12/10/2019 01:58 P
== END ==
LOC: M ADAMS 11:40
PROVIDERS: ATTEND Family Medicine
DX: M47.812 Spondylosis without myelopathy or radiculopathy, cervical region (principal)

== ENCOUNTER → 2020-04-29 | Outpatient (REF) | payer MEDICARE, OTHER ==
[~2020-04-29] MED LIST changes: -ASPI81TA85 PO; +ASPI81TA86 PO
[2020-06-17 11:03] LABS: BASO % 0.4 % (0.0-1.0); EOS # 0.1 10^3/uL (0.0-0.5); EOS % 1.2 % (0.0-3.0); HEMATOCRIT 50.3 % (42.0-52.0); HEMOGLOBIN 16.3 g/dl (13.5-17.5); LYMPH # 2.8 10^3/uL (1.5-5.0); LYMPH % 25.5 % (24.0-44.0); MEAN CORPUSCULAR HEMOGLOBIN 31.5 pg (27.0-33.0); MEAN CORPUSCULAR HGB CONC 32.4 g/dl (32.0-36.5); MEAN CORPUSCULAR VOLUME 97.3 fl (80.0-96.0); MONO # 0.7 10^3/uL (0.0-0.8); MONO % 6.8 % (0.0-5.0); NEUTROPHILS # 7.1 10^3/uL (1.5-8.5); NEUTROPHILS % 65.2 % (36.0-66.0); PLATELET COUNT, AUTOMATED 217 10^3/uL (150-450); RED BLOOD COUNT 5.17 10^6/uL (4.30-6.10); WHITE BLOOD COUNT 10.9 10^3/uL (4.0-10.0)
[2020-07-20 08:37] LABS: ALBUMIN 3.8 GM/DL (3.2-5.2); ALT/SGPT 22 U/L (12-78); BILIRUBIN,TOTAL 0.6 MG/DL (0.2-1.0); BLOOD UREA NITROGEN 29 MG/DL (7-18); CARBON DIOXIDE LEVEL 31 MEQ/L (21-32); CHLORIDE LEVEL 103 MEQ/L (98-107); CHOLESTEROL LEVEL 175 MG/DL (<200); CHOLESTEROL RISK RATIO 3.301 (<5); CREATININE FOR GFR 1.23 MG/DL (0.70-1.30); GLOMERULAR FILTRATION RATE > 60.0 (>49); GLUCOSE, FASTING 117 MG/DL (70-100); HDL CHOLESTEROL 53 MG/DL (>40); HEMOGLOBIN A1c 6.3 %; LDL CHOLESTEROL 80 MG/DL (<100); NON-HDL-C 122 MG/DL; POTASSIUM SERUM 4.8 MEQ/L (3.5-5.1); PROSTATIC SPECIFIC AG MONITOR 6.82 NG/ML (< 4.00); SODIUM LEVEL 138 MEQ/L (136-145); TRIGLYCERIDES LEVEL 208 MG/DL (<150); VITAMIN B12 LEVEL 386 PG/ML (247-911)
== END ==
LOC: M LABDRWAD 11:34
PROVIDERS: ATTEND Family Medicine
DX: E78.5 Hyperlipidemia, unspecified (principal); D75.89 Other specified diseases of blood and blood-forming organs; R97.20 Elevated prostate specific antigen [PSA]

== ENCOUNTER → 2020-05-01 | Outpatient (CLI) | payer MEDICARE, BC, OTHER ==
[2020-05-01 15:43] LABS: HEMATOCRIT 39.7 % (42.0-52.0); HEMOGLOBIN 13.4 g/dl (13.5-17.5); MEAN CORPUSCULAR HGB CONC 33.8 g/dl (32.0-36.5); MEAN CORPUSCULAR VOLUME 94.7 fl (80.0-96.0); PLATELET COUNT, AUTOMATED 169 10^3/uL (150-450); RED BLOOD COUNT 4.19 10^6/uL (4.30-6.10); WHITE BLOOD COUNT 8.1 10^3/uL (4.0-10.0)
[2020-05-01 15:46] LABS: ALBUMIN 3.5 GM/DL (3.2-5.2); ALT/SGPT 22 U/L (12-78); BILIRUBIN,TOTAL 0.4 MG/DL (0.2-1.0); BLOOD UREA NITROGEN 26 MG/DL (7-18); CALCIUM LEVEL 9.6 MG/DL (8.8-10.2); CARBON DIOXIDE LEVEL 29 MEQ/L (21-32); CHLORIDE LEVEL 105 MEQ/L (98-107); CREATININE FOR GFR 1.02 MG/DL (0.70-1.30); FREE T4 1.01 NG/DL (0.76-1.46); GLOMERULAR FILTRATION RATE > 60.0 (>49); GLUCOSE, FASTING 109 MG/DL (70-100); IRON (FE) 88 UG/DL (65-175); PERCENT SATURATION 26.3 % (19.7-50.0); SODIUM LEVEL 139 MEQ/L (136-145); TOTAL IRON BINDING CAPACITY 335 UG/DL (250-450); TOTAL PROTEIN 6.4 GM/DL (6.4-8.2); TROPONIN I < 0.02 NG/ML (< 0.10)
[2020-05-01 17:05] LABS: HEMOGLOBIN A1c 6.4 %
== END ==
LOC: M PLALAB 12:57
PROVIDERS: ATTEND Family Medicine
DX: E78.5 Hyperlipidemia, unspecified (principal); I10 Essential (primary) hypertension; R73.01 Impaired fasting glucose; J45.30 Mild persistent asthma, uncomplicated
CPT/HCPCS: 36415; 80053; 83036; 83550; 83735; 84439; 84484; 85027; G0463

== ENCOUNTER 2020-08-27 09:44 | Emergency (ER) | payer MEDICARE, BC, OTHER ==
[~2020-08-27] VITALS: Ht 167.6 cm; Wt 99.8 kg
[2020-08-27] MEDS ORDERED: RAMI1CAP26 PO (09:56)
--- NOTE | 2020-08-27 10:28 | REP ---
INDICATION: fell from truck. COMPARISON: None. FINDINGS: Two views of the left humerus demonstrate advanced glenohumeral osteoarthritis with joint space narrowing, sclerosis, and osteophyte formation. The arthropathy findings are unchanged from September 29, 2018 prior radiographs.. No fracture or subluxation is seen. No opaque foreign body noted. IMPRESSION: Glenohumeral osteoarthritis. No fracture or acute bony abnormality.. <Electronically signed by Andrei Mcleod > 08/27/20 [id number]
[2020-08-27] MEDS ORDERED: ACETAMINOPHEN 500 MG TAB PO ONE (11:00)
--- NOTE | 2020-08-27 11:17 | REP ---
INDICATION: L shoulder pain, fell directly onto shoulder. COMPARISON: 09/29/2018. TECHNIQUE: Three views. FINDINGS: There is no fracture or dislocation. There is advanced glenohumeral osteoarthritis, unchanged. There is mild widening of the acromioclavicular joint, unchanged, anatomic variant versus grade 1 separation. IMPRESSION: Advanced glenohumeral osteoarthritis. Mild widening of the acromioclavicular joint as described. <Electronically signed by Trenton Jimenez > 08/27/20 [id number]
[2020-08-27] MEDS ORDERED: ramipriL 5 MG CAP PO ONE (11:30)
[2020-08-27 12:31] VITALS: BP 159/94
== END 2020-08-27 12:28 | disposition home or self-care (01) ==
LOC: M ED 09:44
DX: S43.52XA Sprain of left acromioclavicular joint, initial encounter (principal); S43.422A Sprain of left rotator cuff capsule, initial encounter; S40.012A Contusion of left shoulder, initial encounter; W01.0XXA Fall on same level from slipping, tripping and stumbling without subsequent striking against object, initial encounter; Y92.002 Bathroom of unspecified non-institutional (private) residence as the place of occurrence of the external cause; Y93.9 Activity, unspecified; Y99.9 Unspecified external cause status; M19.012 Primary osteoarthritis, left shoulder; I10 Essential (primary) hypertension; E78.5 Hyperlipidemia, unspecified; K44.9 Diaphragmatic hernia without obstruction or gangrene; J45.909 Unspecified asthma, uncomplicated; N40.0 Benign prostatic hyperplasia without lower urinary tract symptoms; F33.9 Major depressive disorder, recurrent, unspecified; Z88.0 Allergy status to penicillin; Z88.1 Allergy status to other antibiotic agents

== ENCOUNTER → 2020-09-19 | Outpatient (CLI) | payer MEDICARE, BC, OTHER ==
[~2020-09-19] MED LIST changes: +RAMI1CAP26 PO
--- NOTE | 2020-09-19 16:39 | REP ---
INDICATION: LT SHOULDER IMPINGEMENT SYNDROME. COMPARISON: 01/01/2011. TECHNIQUE: Coronal oblique T1, T2 fat sat, sagittal oblique T2 fat sat, axial T2 fat sat, gradient echo. FINDINGS: Rotator cuff: There is a partial tear of the distal subscapularis tendon. Diffuse increased signal is seen in portions of the supraspinatus tendon with partial undersurface and bursal surface tears. Acromioclavicular joint: Unremarkable. Acromion: Type 1. Biceps Tendon: Proximal biceps tendon is torn. Hill Sach's deformity: None. Deltoid muscle: No abnormal signal. Labrum: The superior as well as inferior labrum are truncated and appear frayed. There is tear of the posterior labrum. Cartilage: There is severe chondromalacia at the glenohumeral joint. Bone marrow: Small subcortical cyst is seen in the superolateral humeral head. There is mild marrow edema in the medial humeral head with flattening and a large spur noted. Moderate subchondral marrow edema is seen of the bony glenoid particularly inferiorly. A subchondral cyst is seen in the superior glenoid measuring slightly greater than 1 cm maximum diameter. Joint fluid: There is mild joint effusion. There is a tiny amount of subacromial and subdeltoid bursal fluid. There is a cartilaginous or ossific body beneath the coracoid process measuring 0.5 cm in diameter. IMPRESSION: Partial tear distal subscapularis tendon. Partial bursal surface and undersurface tears of the distal supraspinatus tendon. Proximal biceps tendon is torn. Diffuse truncation and fraying of both the superior labrum and inferior labrum. There is a tear of the posterior labrum. Severe arthritic changes with subchondral marrow edema and cystic change at the glenohumeral joint as discussed above. Small joint effusion. Cartilaginous or os if thick body beneath the coracoid process. <Electronically signed by Trenton Sims > 09/19/20 [id number]
== END ==
LOC: M RAD 14:28
PROVIDERS: ATTEND Family Medicine
DX: M75.102 Unspecified rotator cuff tear or rupture of left shoulder, not specified as traumatic (principal); M75.42 Impingement syndrome of left shoulder; M25.412 Effusion, left shoulder; M94.212 Chondromalacia, left shoulder

== ENCOUNTER → 2020-12-16 | Outpatient (REF) | payer MEDICARE, OTHER ==
[2020-12-16 13:06] LABS: BASO # 0.1 10^3/uL (0.0-0.2); BASO % 0.8 % (0.0-1.0); EOS # 0.3 10^3/uL (0.0-0.5); EOS % 3.9 % (0.0-3.0); HEMATOCRIT 46.3 % (42.0-52.0); HEMOGLOBIN 15.2 g/dl (13.5-17.5); LYMPH # 2.4 10^3/uL (1.5-5.0); LYMPH % 33.5 % (24.0-44.0); MEAN CORPUSCULAR HEMOGLOBIN 30.4 pg (27.0-33.0); MEAN CORPUSCULAR HGB CONC 32.8 g/dl (32.0-36.5); MEAN CORPUSCULAR VOLUME 92.6 fl (80.0-96.0); MONO # 0.6 10^3/uL (0.0-0.8); MONO % 8.3 % (2.0-8.0); NEUTROPHILS # 3.8 10^3/uL (1.5-8.5); NEUTROPHILS % 53.1 % (36.0-66.0); PLATELET COUNT, AUTOMATED 243 10^3/uL (150-450); WHITE BLOOD COUNT 7.2 10^3/uL (4.0-10.0)
[2020-12-16 13:15] LABS: INR 0.98; PARTIAL THROMBOPLASTIN TIME 29.5 SECONDS (24.2-38.5); PROTHROMBIN TIME 13.2 SECONDS (12.5-14.3)
[2020-12-16 13:27] LABS: HEMOGLOBIN A1c 6.2 %
[2020-12-16 13:31] LABS: ALBUMIN 3.8 GM/DL (3.2-5.2); ALT/SGPT 21 U/L (12-78); BILIRUBIN,TOTAL 0.4 MG/DL (0.2-1.0); BLOOD UREA NITROGEN 16 MG/DL (7-18); CALCIUM LEVEL 9.1 MG/DL (8.8-10.2); CARBON DIOXIDE LEVEL 30 MEQ/L (21-32); CHLORIDE LEVEL 103 MEQ/L (98-107); CREATININE FOR GFR 0.96 MG/DL (0.70-1.30); GLOMERULAR FILTRATION RATE > 60.0 (>49); GLUCOSE, FASTING 94 MG/DL (70-100); NT-PRO BNP 30 PG/ML (<125); POTASSIUM SERUM 4.5 MEQ/L (3.5-5.1); SODIUM LEVEL 139 MEQ/L (136-145)
== END ==
LOC: M SFHCPLAZ 09:22 → M SFHCADAM 09:27
PROVIDERS: ATTEND Family Medicine
DX: R73.01 Impaired fasting glucose (principal); I10 Essential (primary) hypertension

== ENCOUNTER → 2021-02-20 | Outpatient (REF) | payer MEDICARE, BC, OTHER ==
[2021-02-20 18:07] LABS: CREATININE FOR GFR 0.83 MG/DL (0.70-1.30); GLOMERULAR FILTRATION RATE > 60.0 (>49)
== END ==
LOC: M LABDRWAD 16:25
PROVIDERS: ATTEND Neurological Surgery
DX: D49.7 Neoplasm of unspecified behavior of endocrine glands and other parts of nervous system (principal)

== ENCOUNTER → 2021-02-25 | Outpatient (CLI) | payer MEDICARE, BC, OTHER ==
[~2021-02-25] MED LIST changes: +PROHANCE 279.3MG/ML 5ML VIAL As Ordered ONE
--- NOTE | 2021-02-25 18:18 | REPVR ---
PROCEDURE INFORMATION: Exam: MR Head Without and With Contrast, Sella Exam date and time: 02/25/2021 2:59 PM Age: 70 years old Clinical indication: Condition or disease; Other: HX of pituitary tumor; Prior surgery; Surgery date: 6+ months; Surgery type: Pituitary adenoma resection; Additional info: Other specified disorders of brain TECHNIQUE: Imaging protocol: MR of the head without and with intravenous contrast. Exam focused on the sella. Contrast material: PROHANCE; Contrast volume: 9 ml; Contrast route: INTRAVENOUS (IV); COMPARISON: MRI-Brain W/O FOLL BY WITH 02/16/2019 1:22 PM FINDINGS: Brain: There is no restricted diffusion to suggest acute infarction. There is a normal variant doreen cisterna magna. There is no acute intracranial hemorrhage. Minimal increased signal is seen in the periventricular white matter with small foci of increased signal in the centrum semiovale and subcortical which is a nonspecific finding but often associated with microangiopathy. There is no abnormal contrast enhancement in the brain parenchyma or leptomeninges. The pituitary infundibulum is midline. The pituitary tissue is slightly heterogeneous but stable in comparison to the 02/16/2019 MRI. There is no compression of the optic chiasm. Cerebral ventricles: Stable ventriculomegaly. Paranasal sinuses: There is no significant mucoperiosteal thickening or air-fluid levels in the visualized portion of the paranasal sinuses. Mastoid air cells: Minimal increased signal is seen in some of the mastoid air cells bilaterally slightly more on left than right which may represent a small amount of fluid- unchanged. Orbital cavity: The orbits are normal. Pituitary gland and sella: See "Brain" finding. Bones/joints: Unremarkable. IMPRESSION: Although the pituitary gland is slightly heterogeneous in appearance on the post gadolinium sequences it is stable in comparison to the 2019 study without evidence tumor recurrence. There is stable ventriculomegaly which may be due to normal pressure hydrocephalus since it appears out of proportion to the degree of sulcal enlargement. Electronically signed by: Deya Doe On 02/25/2021 18:18:15 PM
== END ==
LOC: M RAD 13:15
PROVIDERS: ATTEND Neurological Surgery
DX: D49.7 Neoplasm of unspecified behavior of endocrine glands and other parts of nervous system (principal); G93.89 Other specified disorders of brain
CPT/HCPCS: 70553; A9576

== ENCOUNTER → 2021-08-13 | Outpatient (CLI) | payer MEDICARE, BC, OTHER ==
[~2021-08-13] MED LIST changes: -PROHANCE 279.3MG/ML 5ML VIAL As Ordered ONE
[2021-08-13 13:48] LABS: BASO # 0.1 10^3/uL (0.0-0.2); BASO % 0.7 % (0.0-1.0); EOS # 0.2 10^3/uL (0.0-0.5); EOS % 2.6 % (0.0-3.0); HEMATOCRIT 45.2 % (42.0-52.0); HEMOGLOBIN 14.7 g/dl (13.5-17.5); LYMPH # 2.9 10^3/uL (1.5-5.0); LYMPH % 37.5 % (24.0-44.0); MEAN CORPUSCULAR HEMOGLOBIN 30.7 pg (27.0-33.0); MEAN CORPUSCULAR HGB CONC 32.5 g/dl (32.0-36.5); MEAN CORPUSCULAR VOLUME 94.4 fl (80.0-96.0); MONO # 0.5 10^3/uL (0.0-0.8); MONO % 6.4 % (2.0-8.0); NEUTROPHILS % 52.5 % (36.0-66.0); PLATELET COUNT, AUTOMATED 201 10^3/uL (150-450); RED BLOOD COUNT 4.79 10^6/uL (4.30-6.10); WHITE BLOOD COUNT 7.6 10^3/uL (4.0-10.0)
[2021-08-13 13:57] LABS: INR 0.96; PARTIAL THROMBOPLASTIN TIME 30.1 SECONDS (25.9-37.0); PROTHROMBIN TIME 13.2 SECONDS (12.7-14.5)
[2021-08-13 14:20] LABS: MALB URINE SIEMENS 41.1 MG/L
[2021-08-13 14:21] LABS: HEMOGLOBIN A1c 6.7 %
[2021-08-13 14:22] LABS: ALBUMIN 3.8 GM/DL (3.2-5.2); ALT/SGPT 25 U/L (12-78); BILIRUBIN,TOTAL 0.5 MG/DL (0.2-1.0); BLOOD UREA NITROGEN 25 MG/DL (7-18); CARBON DIOXIDE LEVEL 27 MEQ/L (21-32); CHLORIDE LEVEL 103 MEQ/L (98-107); CHOLESTEROL LEVEL 205 MG/DL (<200); CREATININE FOR GFR 0.92 MG/DL (0.70-1.30); GLOMERULAR FILTRATION RATE > 60.0 (>49); GLUCOSE, FASTING 107 MG/DL (70-100); HDL CHOLESTEROL 41 MG/DL (>40); LDL CHOLESTEROL 96 MG/DL (<100); NON-HDL-C 164 MG/DL; POTASSIUM SERUM 4.1 MEQ/L (3.5-5.1); SODIUM LEVEL 137 MEQ/L (136-145); TOTAL PROTEIN 7.2 GM/DL (6.4-8.2); TRIGLYCERIDES LEVEL 339 MG/DL (<150)
[2021-08-13 14:28] LABS: VITAMIN B12 LEVEL 219 PG/ML (247-911)
[2021-08-17 10:46] LABS: ALBUMIN 4.31 GM/DL (3.29-5.55); ALBUMIN % 59.9 % (55.8-66.1); ALPHA-1-GLOBULIN % 3.4 % (2.9-4.9); ALPHA-1-GLOBULINS 0.24 GM/DL (0.17-0.41); ALPHA-2-GLOBULINS 0.65 GM/DL (0.42-0.99); BETA-1-GLOBULINS 0.48 GM/DL (0.28-0.60); BETA-1-GLOBULINS % 6.6 % (4.7-7.2); BETA-2-GLOBULINS % 5.6 % (3.2-6.5)
[2021-08-17 10:47] LABS: GAMMA GLOBULIN % 15.5 % (11.1-18.8); GAMMA GLOBULINS 1.12 GM/DL (0.65-1.58)
== END ==
LOC: M PLALAB 11:37
PROVIDERS: ATTEND Family Medicine
DX: I10 Essential (primary) hypertension (principal); R73.01 Impaired fasting glucose
CPT/HCPCS: 36415; 80053; 80061; 82043; 82607; 83036; 84165; 85025; 85610; 85730; 86335; 93005; G0103; G0463

== ENCOUNTER → 2022-03-03 | Outpatient (CLI) | payer MEDICARE, BC, OTHER ==
[~2022-03-03] MED LIST changes: +ALBU2.5V10 INH; -ALBU83IN INH; -MOME50SP; +NASO50SP3
[2022-03-03 19:26] LABS: MAU/CREAT RATIO 18.1 MCG/MG (0.0-30.0)
== END ==
LOC: M PLALAB 16:00
PROVIDERS: ATTEND Physician Assistant
DX: I10 Essential (primary) hypertension (principal)

== ENCOUNTER → 2022-03-22 | Outpatient (CLI) | payer MEDICARE, BC, OTHER ==
[2022-03-22 13:10] LABS: BASO % 0.4 % (0.0-1.0); EOS # 0.2 10^3/uL (0.0-0.5); HEMATOCRIT 43.7 % (42.0-52.0); HEMATOCRIT 43.8 % (42.0-52.0); HEMOGLOBIN 14.2 g/dl (13.5-17.5); LYMPH # 2.7 10^3/uL (1.5-5.0); LYMPH % 35.6 % (24.0-44.0); MEAN CORPUSCULAR HEMOGLOBIN 30.3 pg (27.0-33.0); MEAN CORPUSCULAR HGB CONC 32.5 g/dl (32.0-36.5); MEAN CORPUSCULAR VOLUME 93.4 fl (80.0-96.0); MONO # 0.6 10^3/uL (0.0-0.8); MONO % 7.9 % (2.0-8.0); NEUTROPHILS # 4.1 10^3/uL (1.5-8.5); NEUTROPHILS % 53.8 % (36.0-66.0); PLATELET COUNT, AUTOMATED 208 10^3/uL (150-450); RED BLOOD COUNT 4.68 10^6/uL (4.30-6.10); WHITE BLOOD COUNT 7.6 10^3/uL (4.0-10.0)
[2022-03-22 15:39] LABS: ALBUMIN 3.6 GM/DL (3.2-5.2); ALT/SGPT 21 U/L (12-78); BILIRUBIN,TOTAL 0.4 MG/DL (0.2-1.0); BLOOD UREA NITROGEN 20 MG/DL (7-18); CALCIUM LEVEL 9.1 MG/DL (8.8-10.2); CARBON DIOXIDE LEVEL 28 MEQ/L (21-32); CHLORIDE LEVEL 107 MEQ/L (98-107); CREATININE FOR GFR 1.04 MG/DL (0.70-1.30); GLOMERULAR FILTRATION RATE > 60.0 (>42); GLUCOSE, FASTING 126 MG/DL (70-100); NT-PRO BNP 61 PG/ML (<125); POTASSIUM SERUM 4.7 MEQ/L (3.5-5.1); SODIUM LEVEL 139 MEQ/L (136-145); TOTAL PROTEIN 6.9 GM/DL (6.4-8.2); VITAMIN B12 LEVEL 472 PG/ML (247-911)
[2022-03-23 00:59] LABS: HEMOGLOBIN A1c 6.8 %
== END ==
LOC: M PLALAB 09:43 → M LAB 09:43
PROVIDERS: ATTEND Family Medicine
DX: I10 Essential (primary) hypertension (principal); E53.8 Deficiency of other specified B group vitamins; Z79.899 Other long term (current) drug therapy

== ENCOUNTER → 2022-03-30 | Outpatient (CLI) | payer MEDICARE, BC, OTHER | LOC: M PLAIMG 14:16 | PROVIDERS: ATTEND Family Medicine | DX: I62.03 Nontraumatic chronic subdural hemorrhage (principal); M47.812 Spondylosis without myelopathy or radiculopathy, cervical region; G91.2 (Idiopathic) normal pressure hydrocephalus; I49.8 Other specified cardiac arrhythmias ==

== ENCOUNTER 2022-05-11 15:34 | Emergency (ER) | payer MEDICARE, BC, OTHER ==
[~2022-05-11] VITALS: Ht 167.6 cm; Wt 97.3 kg
[2022-05-11] MEDS ORDERED: CHLO125TA (15:50)
[2022-05-11] MEDS ORDERED: BISO5TAB14 (15:50)
[2022-05-11] MEDS ORDERED: ESCITALOPRAM (15:50)
[2022-05-11] MEDS ORDERED: DERMABOND TOPICAL SKIN ADHESIVE TOP ONE (19:45)
[2022-05-11 20:23] VITALS: BP 156/87
== END 2022-05-11 20:29 | disposition home or self-care (01) ==
LOC: M ED 15:34
DX: S01.01XA Laceration without foreign body of scalp, initial encounter (principal); W19.XXXA Unspecified fall, initial encounter; E11.9 Type 2 diabetes mellitus without complications; F32.A Depression, unspecified; I10 Essential (primary) hypertension; K44.9 Diaphragmatic hernia without obstruction or gangrene; Z88.0 Allergy status to penicillin; Z88.1 Allergy status to other antibiotic agents; Y92.009 Unspecified place in unspecified non-institutional (private) residence as the place of occurrence of the external cause; Y93.9 Activity, unspecified; Y99.9 Unspecified external cause status; Z79.51 Long term (current) use of inhaled steroids; Z79.899 Other long term (current) drug therapy

== ENCOUNTER 2022-09-30 11:32 | Emergency (ER) | payer MEDICARE, BC, OTHER ==
[~2022-09-30] VITALS: Ht 167.6 cm; Wt 95.5 kg
[~2022-09-30 11:32] MED LIST changes: +BISO5TAB14; +CHLO125TA; +ESCITALOPRAM
[2022-09-30] MEDS ORDERED: BOOSTRIX/ADACEL VACCINE (DIPHTH/PERTUSS/ACELL/TETANUS) 0.5ML SYR IM ONE (12:25)
[2022-09-30] MEDS ORDERED: ACETAMINOPHEN 500 MG TAB PO ONE (14:40)
[2022-09-30] MEDS ORDERED: ceFAZolin 1GM VIAL IM ONE (15:15)
[2022-09-30] MEDS ORDERED: CEPH500C PO (15:36)
[2022-09-30] MEDS ORDERED: TRAM50TA2 PO (15:36)
[2022-09-30 15:59] VITALS: BP 135/73
== END 2022-09-30 16:01 | disposition home or self-care (01) ==
LOC: M ED 11:32
DX: S61.111A Laceration without foreign body of right thumb with damage to nail, initial encounter (principal); W31.2XXA Contact with powered woodworking and forming machines, initial encounter; I10 Essential (primary) hypertension; E78.5 Hyperlipidemia, unspecified; J45.909 Unspecified asthma, uncomplicated; Z88.0 Allergy status to penicillin; Z88.1 Allergy status to other antibiotic agents; Z88.6 Allergy status to analgesic agent; Z79.51 Long term (current) use of inhaled steroids; Z79.811 Long term (current) use of aromatase inhibitors; Z79.899 Other long term (current) drug therapy; Y92.009 Unspecified place in unspecified non-institutional (private) residence as the place of occurrence of the external cause; Y93.89 Activity, other specified; Y99.9 Unspecified external cause status

== ENCOUNTER → 2022-10-12 | Outpatient (REF) | payer MEDICARE, BC, OTHER ==
[~2022-10-12] MED LIST changes: +CEPH500C PO; +TRAM50TA2 PO
[2022-10-12 18:49] LABS: APPEARANCE, URINE MANUAL CLEAR (CLEAR); BILIRUBIN, URINE MANUAL NEGATIVE (NEGATIVE); BLOOD URINE MANUAL NEGATIVE (NEGATIVE); COLOR, URINE MANUAL YELLOW (YELLOW); GLUCOSE, URINE (UA) MANUAL 4+(1000 MG/DL) mg/dL (NEGATIVE); KETONE, URINE MANUAL NEGATIVE (NEGATIVE); LEUKOCYTE ESTERASE, URINE MAN NEGATIVE (NEGATIVE); NITRITE, URINE MANUAL NEGATIVE (NEGATIVE); PROTEIN, URINE MANUAL NEGATIVE (NEGATIVE); SPECIFIC GRAVITY,URINE MANUAL 1.025 (1.002-1.035); UROBILINOGEN, URINE MANUAL NORMAL (NORMAL)
== END ==
LOC: M SFHCPLAZ 15:55
PROVIDERS: ATTEND Physician Assistant
DX: R30.0 Dysuria (principal)

== ENCOUNTER → 2022-10-27 | Outpatient (CLI) | payer MEDICARE, BC, OTHER ==
[~2022-10-27] MED LIST changes: +ATOR1TAB19 PO; -BISO5TAB14; +BISO5TAB14 PO; -CHLO125TA; +CHLO125TA PO; +FINA5TAB2 PO; +FLUO40CA PO; +HYDR-3363 PO; +LEXA1TAB2 PO; +TAMS1CAP17 PO; +TELM1TAB37 PO; +VENTAER INH; +VITA500T40 PO
== END ==
LOC: M LABSMTC 09:45
PROVIDERS: ATTEND Anesthesiology
DX: Z01.812 Encounter for preprocedural laboratory examination (principal); Z20.822 Contact with and (suspected) exposure to COVID-19

== ENCOUNTER 2022-11-01 10:28 | Day surgery (SDC) | payer MEDICARE, BC, OTHER ==
[~2022-11-01] VITALS: Ht 167.6 cm; Wt 94.3 kg
[~2022-11-01 10:28] MED LIST changes: +NS 1,000 ML IV ONE
[2022-11-01] MEDS ORDERED: LIDOCAINE 2% 100MG/5ML SDV (FOR ANES.) As Ordered ONE (12:57)
[2022-11-01] MEDS ORDERED: propofoL 200 MG/20 ML VIAL As Ordered ONE ×2 (12:57→13:07)
[2022-11-01 14:10] VITALS: BP 138/84
== END 2022-11-01 14:30 | disposition home or self-care (01) ==
LOC: M OPP 10:28
PROVIDERS: ATTEND Internal Medicine Gastroenterology
DX: Z12.11 Encounter for screening for malignant neoplasm of colon (principal); Z80.0 Family history of malignant neoplasm of digestive organs; D12.6 Benign neoplasm of colon, unspecified; K57.30 Diverticulosis of large intestine without perforation or abscess without bleeding; K64.4 Residual hemorrhoidal skin tags; K64.8 Other hemorrhoids; K44.9 Diaphragmatic hernia without obstruction or gangrene; K22.2 Esophageal obstruction; K29.70 Gastritis, unspecified, without bleeding; G47.33 Obstructive sleep apnea (adult) (pediatric); I10 Essential (primary) hypertension; E78.00 Pure hypercholesterolemia, unspecified; J45.909 Unspecified asthma, uncomplicated; N40.0 Benign prostatic hyperplasia without lower urinary tract symptoms; Z79.02 Long term (current) use of antithrombotics/antiplatelets; Z79.2 Long term (current) use of antibiotics; Z79.51 Long term (current) use of inhaled steroids; Z79.811 Long term (current) use of aromatase inhibitors; Z99.89 Dependence on other enabling machines and devices; Z88.0 Allergy status to penicillin; Z88.1 Allergy status to other antibiotic agents; Z88.2 Allergy status to sulfonamides; Z88.6 Allergy status to analgesic agent; Z87.891 Personal history of nicotine dependence; Z98.2 Presence of cerebrospinal fluid drainage device

== ENCOUNTER 2023-01-31 12:17 | Day surgery (SDC) | payer MEDICARE, BC, OTHER ==
[~2023-01-31] VITALS: Ht 167.6 cm; Wt 96.6 kg
[2023-01-31] MEDS ORDERED: propofoL 200 MG/20 ML VIAL As Ordered ONE ×2 (13:47→13:57)
[2023-01-31] MEDS ORDERED: MIDAZOLAM INJ 2MG/2ML VIAL As Ordered ONE (13:48)
[2023-01-31 14:37] VITALS: BP 152/79
== END 2023-01-31 14:30 | disposition home or self-care (01) ==
LOC: M OPP 12:17
PROVIDERS: ATTEND Internal Medicine Gastroenterology
DX: K22.2 Esophageal obstruction (principal); K44.9 Diaphragmatic hernia without obstruction or gangrene; K29.70 Gastritis, unspecified, without bleeding; K31.89 Other diseases of stomach and duodenum; G47.33 Obstructive sleep apnea (adult) (pediatric); Z79.02 Long term (current) use of antithrombotics/antiplatelets; Z79.1 Long term (current) use of non-steroidal anti-inflammatories (NSAID); Z79.51 Long term (current) use of inhaled steroids; Z79.899 Other long term (current) drug therapy; Z88.0 Allergy status to penicillin; Z88.1 Allergy status to other antibiotic agents
CPT/HCPCS: 43239; 43245; 88305; J2250

== ENCOUNTER → 2023-03-01 | Outpatient (CLI) | payer MEDICARE, BC, OTHER ==
[~2023-03-01] MED LIST changes: -NS 1,000 ML IV ONE
== END ==
LOC: M PLALAB 11:53
PROVIDERS: ATTEND Physician Assistant
DX: J45.30 Mild persistent asthma, uncomplicated (principal); J40 Bronchitis, not specified as acute or chronic

== ENCOUNTER → 2023-07-12 | Outpatient (CLI) | payer MEDICARE, BC, OTHER ==
[2023-07-12 13:29] LABS: HEMATOCRIT 46.8 % (42.0-52.0)
[2023-07-12 13:32] LABS: BASO # 0.1 10^3/uL (0.0-0.2); BASO % 0.5 % (0.0-1.0); EOS # 0.2 10^3/uL (0.0-0.5); EOS % 2.1 % (0.0-3.0); HEMATOCRIT 47.7 % (42.0-52.0); HEMOGLOBIN 16.2 g/dl (13.5-17.5); LYMPH # 3.2 10^3/uL (1.5-5.0); LYMPH % 32.5 % (24.0-44.0); MEAN CORPUSCULAR HEMOGLOBIN 30.7 pg (27.0-33.0); MEAN CORPUSCULAR VOLUME 90.3 fl (80.0-96.0); MONO # 0.6 10^3/uL (0.0-0.8); MONO % 6.6 % (2.0-8.0); NEUTROPHILS # 5.6 10^3/uL (1.5-8.5); NEUTROPHILS % 57.9 % (36.0-66.0); PLATELET COUNT, AUTOMATED 263 10^3/uL (150-450); RED BLOOD COUNT 5.28 10^6/uL (4.30-6.10); WHITE BLOOD COUNT 9.7 10^3/uL (4.0-10.0)
[2023-07-12 14:08] LABS: ALBUMIN 3.8 G/DL (3.2-5.2); ALKALINE PHOSPHATASE 82 U/L (46-116); ALT/SGPT 14 U/L (7.0-40); AST/SGOT 15 U/L (<34); BILIRUBIN,TOTAL 0.6 MG/DL (0.3-1.2); BLOOD UREA NITROGEN 27 MG/DL (9-23); CALCIUM LEVEL 9.3 MG/DL (8.3-10.6); CARBON DIOXIDE LEVEL 30 MMOL/L (20-31); CHLORIDE LEVEL 97 MMOL/L (98-107); CREATININE FOR GFR 1.05 MG/DL (0.70-1.30); FERRITIN 326.4 NG/ML (10.5-307.3); FREE T4 0.85 NG/DL (0.89-1.76); GLOMERULAR FILTRATION RATE > 60.0 (>42); GLUCOSE, FASTING 222 MG/DL (74-106); POTASSIUM SERUM 4.3 MMOL/L (3.5-5.1); SODIUM LEVEL 136 MMOL/L (136-145); THYROID STIMULATING HORMONE 1.524 uIU/ML (0.55-4.78); TOTAL PROTEIN 7.3 G/DL (5.7-8.2); VITAMIN B12 LEVEL 415 PG/ML (211-911)
== END ==
LOC: M PLAIMG 09:31
PROVIDERS: ATTEND Family Medicine
DX: I10 Essential (primary) hypertension (principal); E53.8 Deficiency of other specified B group vitamins; R97.20 Elevated prostate specific antigen [PSA]; R73.01 Impaired fasting glucose
CPT/HCPCS: 36415; 80053; 82607; 82728; 82747; 83036; 83525; 83735; 84439; 84443; 85025; G0103

== ENCOUNTER → 2023-08-03 | Outpatient (REF) | payer MEDICARE, BC, OTHER | LOC: M SFHCPLAZ 12:43 | PROVIDERS: ATTEND Student in an Organized Health Care Education/Training Program | DX: Z87.438 Personal history of other diseases of male genital organs (principal); Z79.899 Other long term (current) drug therapy ==

== ENCOUNTER → 2023-11-29 | Outpatient (REF) | payer MEDICARE, OTHER | LOC: M SFHCPLAZ 08:25 | PROVIDERS: ATTEND Family Medicine | DX: R97.20 Elevated prostate specific antigen [PSA] (principal); E11.9 Type 2 diabetes mellitus without complications; I10 Essential (primary) hypertension; E53.8 Deficiency of other specified B group vitamins; Z53.9 Procedure and treatment not carried out, unspecified reason ==

== ENCOUNTER → 2023-12-01 | Outpatient (CLI) | payer MEDICARE, BC ==
[2023-12-01 14:31] LABS: BASO # 0.1 10^3/uL (0.0-0.2); BASO % 0.8 % (0.0-1.0); EOS # 0.1 10^3/uL (0.0-0.5); EOS % 1.8 % (0.0-3.0); HEMATOCRIT 47.5 % (42.0-52.0); HEMOGLOBIN 15.9 g/dl (13.5-17.5); LYMPH # 2.9 10^3/uL (1.5-5.0); LYMPH % 36.7 % (24.0-44.0); MEAN CORPUSCULAR HEMOGLOBIN 31.2 pg (27.0-33.0); MEAN CORPUSCULAR HGB CONC 33.5 g/dl (32.0-36.5); MEAN CORPUSCULAR VOLUME 93.3 fl (80.0-96.0); MONO # 0.6 10^3/uL (0.0-0.8); MONO % 7.1 % (2.0-8.0); NEUTROPHILS # 4.2 10^3/uL (1.5-8.5); NEUTROPHILS % 53.5 % (36.0-66.0); PLATELET COUNT, AUTOMATED 243 10^3/uL (150-450); RED BLOOD COUNT 5.09 10^6/uL (4.30-6.10); WHITE BLOOD COUNT 7.8 10^3/uL (4.0-10.0)
[2023-12-01 14:50] LABS: HEMOGLOBIN A1c 7.3 % (4.0-6.0)
[2023-12-01 15:03] LABS: ALBUMIN 4.1 G/DL (3.2-5.2); ALKALINE PHOSPHATASE 67 U/L (46-116); ALT/SGPT 14 U/L (7.0-40); AST/SGOT 13 U/L (<34); BILIRUBIN,TOTAL 0.8 MG/DL (0.3-1.2); BLOOD UREA NITROGEN 26 MG/DL (9-23); CALCIUM LEVEL 9.4 MG/DL (8.3-10.6); CARBON DIOXIDE LEVEL 31 MMOL/L (20-31); CHLORIDE LEVEL 106 MMOL/L (98-107); CHOLESTEROL LEVEL 167 MG/DL (<200); CREATININE FOR GFR 0.98 MG/DL (0.70-1.30); GLOMERULAR FILTRATION RATE > 60.0 (>42); GLUCOSE, FASTING 140 MG/DL (74-106); HDL CHOLESTEROL 35.5 MG/DL (>40); LDL CHOLESTEROL 78.5 MG/DL (<100); NON-HDL-C 131.5 MG/DL; POTASSIUM SERUM 4.7 MMOL/L (3.5-5.1); SODIUM LEVEL 139 MMOL/L (136-145); TOTAL PROTEIN 7.3 G/DL (5.7-8.2); TRIGLYCERIDES LEVEL 265 MG/DL (<150)
[2023-12-01 15:04] LABS: FERRITIN 315.8 NG/ML (10.5-307.3)
[2023-12-03 00:07] LABS: PSA % FREE 12.5 % (.); PSA FREE 0.55 ng/mL; PSA TOTAL 4.4 ng/mL (0.0-4.0)
== END ==
LOC: M PLALAB 10:37
PROVIDERS: ATTEND Family Medicine
DX: E53.8 Deficiency of other specified B group vitamins (principal); E11.9 Type 2 diabetes mellitus without complications; I10 Essential (primary) hypertension; R97.20 Elevated prostate specific antigen [PSA]

== ENCOUNTER → 2023-12-30 | Outpatient (CLI) | payer MEDICARE, BC ==
[~2023-12-30] MED LIST changes: +PROHANCE 279.3MG/ML 15ML VIAL ONE; +PROHANCE 279.3MG/ML 5ML VIAL ONE
== END ==
LOC: M PLAIMG 10:38
PROVIDERS: ATTEND Family Medicine
DX: R97.20 Elevated prostate specific antigen [PSA] (principal)
CPT/HCPCS: 72197; A9576

== ENCOUNTER → 2024-03-13 | Outpatient (REF) | payer MEDICARE, BC ==
[~2024-03-13] MED LIST changes: -PROHANCE 279.3MG/ML 15ML VIAL ONE; -PROHANCE 279.3MG/ML 5ML VIAL ONE; +RAMI10CA64 PO; -RAMI1CAP26 PO
== END ==
LOC: M SMT PRO 10:55
PROVIDERS: ATTEND Urology
DX: R97.20 Elevated prostate specific antigen [PSA] (principal)

== ENCOUNTER → 2024-04-20 | Outpatient (CLI) | payer MEDICARE, BC ==
[~2024-04-20] MED LIST changes: +METF500T13 PO; +OMEP40CA5 PO
[2024-04-20 12:50] LABS: INR 1.06; PARTIAL THROMBOPLASTIN TIME 29.1 SECONDS (24.8-34.2); PROTHROMBIN TIME 13.5 SECONDS (12.5-14.5)
[2024-04-20 13:27] LABS: HEMATOCRIT 45.9 % (42.0-52.0); HEMOGLOBIN 15.2 g/dl (13.5-17.5); MEAN CORPUSCULAR HEMOGLOBIN 30.5 pg (27.0-33.0); MEAN CORPUSCULAR HGB CONC 33.1 g/dl (32.0-36.5); PLATELET COUNT, AUTOMATED 227 10^3/uL (150-450); RED BLOOD COUNT 4.99 10^6/uL (4.30-6.10); WHITE BLOOD COUNT 8.5 10^3/uL (4.0-10.0)
[2024-04-20 13:56] LABS: BLOOD UREA NITROGEN 24 MG/DL (9-23); CALCIUM LEVEL 8.8 MG/DL (8.3-10.6); CARBON DIOXIDE LEVEL 30 MMOL/L (20-31); CHLORIDE LEVEL 104 MMOL/L (98-107); CREATININE FOR GFR 1.02 MG/DL (0.70-1.30); GLOMERULAR FILTRATION RATE > 60.0 (>42); GLUCOSE, FASTING 132 MG/DL (74-106); POTASSIUM SERUM 4.5 MMOL/L (3.5-5.1); SODIUM LEVEL 140 MMOL/L (136-145)
== END ==
LOC: M PLALAB 09:38
PROVIDERS: ATTEND Urology
DX: Z01.818 Encounter for other preprocedural examination (principal); C61 Malignant neoplasm of prostate; N39.0 Urinary tract infection, site not specified

== ENCOUNTER → 2024-04-23 | Outpatient (CLI) | payer MEDICARE, BC | LOC: M ADAMS 10:36 | PROVIDERS: ATTEND Urology | DX: Z01.818 Encounter for other preprocedural examination (principal); C61 Malignant neoplasm of prostate ==

== ENCOUNTER → 2024-04-24 | Outpatient (REF) | payer MEDICARE, BC | LOC: M SFHCPLAZ 12:14 | PROVIDERS: ATTEND Family Medicine | DX: E11.9 Type 2 diabetes mellitus without complications (principal); E53.8 Deficiency of other specified B group vitamins; I10 Essential (primary) hypertension ==

== ENCOUNTER 2024-05-01 10:19 | Day surgery (SDC) | payer MEDICARE, BC ==
[~2024-05-01] VITALS: Ht 170.2 cm; Wt 96.8 kg
[~2024-05-01 10:19] MED LIST changes: +ACETAMINOPHEN 1000MG 100ML IV BAG As Ordered ONE; +LIDOCAINE 2% 100MG/5ML SDV (FOR ANES.) As Ordered ONE; +ONDANSETRON 4MG 2ML VIAL As Ordered ONE; +ROCURONIUM BROMIDE 50MG/5ML VIAL As Ordered ONE; +fentaNYL 100 MCG/2 ML INJECTION As Ordered ONE; +propofoL 200 MG/20 ML VIAL As Ordered ONE
[2024-05-01] MEDS: LR 1,000 ML IV SCH (11:31)
[2024-05-01] MEDS ORDERED: HYDR-3363 PO (11:35)
[2024-05-01] MEDS ORDERED: SILD100T PO (11:35)
[2024-05-01] MEDS ORDERED: GLIM1TAB84 PO (11:35)
[2024-05-01] MEDS ORDERED: HOME MED LIST COMPLETE! XX SCH (11:40)
[2024-05-01] MEDS ORDERED: ALBUTEROL 90 MCG/ACT 8GM HFA INHALER INH PRN (15:00)
[2024-05-01] MEDS ORDERED: ONDANSETRON 4MG 2ML VIAL IV PRN ×2 (15:00→20:10)
[2024-05-01] MEDS ORDERED: PERCOCET 5MG/325MG TAB PO PRN (15:00)
[2024-05-01] MEDS ORDERED: DEXTROSE 50% 50ML SYRINGE IV PRN (15:15)
[2024-05-01] MEDS ORDERED: GLUCAGON INJ 1MG VIAL SC PRN (15:15)
[2024-05-01] MEDS ORDERED: GLUCOSE 4 GM CHEW PO PRN (15:15)
[2024-05-01] MEDS: ceFAZolin SOD 2 GM in IV 1 EA IV ONE (15:20)
[2024-05-01] MEDS: HEPARIN SOD (PORCINE) 5000UNITS/ML 1ML VIAL/SYRINGE SQ ONE (15:28)
[2024-05-01] MEDS ORDERED: HYDROmorphone HCL 2MG/ML 1ML VIAL As Ordered ONE (15:30)
[2024-05-01] MEDS: LIDOCAINE 1% SDV 30ML VIAL As Ordered ONE (15:31)
[2024-05-01] MEDS ORDERED: GLYCOPYRROLATE INJ 0.2 MG/ML 2 ML VIAL As Ordered ONE (15:43)
[2024-05-01] MEDS ORDERED: LABETALOL 100MG/20ML VIAL As Ordered ONE (15:55)
[2024-05-01] MEDS ORDERED: SUGAMMADEX SODIUM 500 MG/5 ML VIAL (BRIDION) As Ordered ONE (16:10)
[2024-05-01] MEDS ORDERED: hydrALAZINE 20MG/ML 1ML VIAL As Ordered ONE (16:13)
[2024-05-01] MEDS: INSULIN LISPRO (NovoLOG) PER UNIT As Ordered ONE (16:49)
[2024-05-01] MEDS: INSULIN LISPRO (NovoLOG) PER UNIT SC SCH ×2 (17:30→22:11)
[2024-05-01] MEDS: ceFAZolin 2 GM/D5W 50 ML IV BAG As Ordered ONE (19:33)
[2024-05-01] MEDS ORDERED: oxyCODONE 5MG TAB PO PRN (20:10)
[2024-05-01] MEDS ORDERED: fentaNYL 100 MCG/2 ML INJECTION IV PRN (20:10)
[2024-05-01] MEDS ORDERED: MORPHINE 2 MG/ML 1ML VIAL IV PRN (20:10)
[2024-05-01 20:36] LABS: HEMATOCRIT 42.4 % (42.0-52.0); HEMOGLOBIN 14.4 g/dl (13.5-17.5); MEAN CORPUSCULAR HEMOGLOBIN 31.5 pg (27.0-33.0); MEAN CORPUSCULAR VOLUME 92.8 fl (80.0-96.0); PLATELET COUNT, AUTOMATED 214 10^3/uL (150-450); RED BLOOD COUNT 4.57 10^6/uL (4.30-6.10)
[2024-05-01 21:07] LABS: BLOOD UREA NITROGEN 25 MG/DL (9-23); CALCIUM LEVEL 8.2 MG/DL (8.3-10.6); CARBON DIOXIDE LEVEL 24 MMOL/L (20-31); CHLORIDE LEVEL 103 MMOL/L (98-107); GLOMERULAR FILTRATION RATE > 60.0 (>42); GLUCOSE, FASTING 236 MG/DL (74-106); SODIUM LEVEL 138 MMOL/L (136-145)
[2024-05-01 21:10] VITALS: BP 139/79; TEMP 97.3; O2SAT 96
[2024-05-01 21:30] VITALS: BP 119/84; TEMP 96.6; O2SAT 96
[2024-05-01 22:00] VITALS: BP 128/79; TEMP 97.7; O2SAT 95
[2024-05-01] MEDS: ATORVASTATIN 10 MG TAB PO SCH (22:11)
[2024-05-01] MEDS: TELMISARTAN 20 MG TAB PO SCH (22:11)
[2024-05-01] MEDS: DOCUSATE SODIUM 100MG CAPSULE PO SCH (22:11)
[2024-05-01] MEDS: NS 1,000 ML IV SCH (22:15)
[2024-05-01 23:00] VITALS: BP 130/79; TEMP 97.9; O2SAT 93
[2024-05-01] MEDS: ceFAZolin SOD 1 GM in D5W MINI-BAG PLUS 50 ML IV SCH (23:26)
[2024-05-02] VITALS (7 sets, daily range): BP systolic 113–148; BP diastolic 61–85; TEMP 97.9–98.2; O2SAT 93–96
[2024-05-02 06:10] LABS: HEMATOCRIT 39.8 % (42.0-52.0); HEMOGLOBIN 13.8 g/dl (13.5-17.5); MEAN CORPUSCULAR HEMOGLOBIN 31.1 pg (27.0-33.0); MEAN CORPUSCULAR HGB CONC 34.7 g/dl (32.0-36.5); MEAN CORPUSCULAR VOLUME 89.6 fl (80.0-96.0); PLATELET COUNT, AUTOMATED 225 10^3/uL (150-450); RED BLOOD COUNT 4.44 10^6/uL (4.30-6.10)
[2024-05-02] MEDS: PERCOCET 5MG/325MG TAB PO PRN (06:13)
[2024-05-02] MEDS: HEPARIN SOD (PORCINE) 5000UNITS/ML 1ML VIAL/SYRINGE SC SCH (06:13)
[2024-05-02 06:33] LABS: BLOOD UREA NITROGEN 19 MG/DL (9-23); CALCIUM LEVEL 8.9 MG/DL (8.3-10.6); CARBON DIOXIDE LEVEL 27 MMOL/L (20-31); CHLORIDE LEVEL 104 MMOL/L (98-107); CREATININE FOR GFR 0.89 MG/DL (0.70-1.30); GLOMERULAR FILTRATION RATE > 60.0 (>42); GLUCOSE, FASTING 186 MG/DL (74-106); POTASSIUM SERUM 4.1 MMOL/L (3.5-5.1); SODIUM LEVEL 138 MMOL/L (136-145)
[2024-05-02] MEDS: ESCITALOPRAM OXALATE 10 MG TAB (LEXAPRO) PO SCH (10:05)
[2024-05-02] MEDS: CHLORTHALIDONE 12.5MG PER 1/2 TABLET PO SCH (10:05)
[2024-05-02] MEDS: NORTRIPTYLINE 25 MG CAP PO SCH (10:05)
[2024-05-02] MEDS: BISOPROLOL FUM 2.5 MG PER 1/2TAB PO SCH (10:06)
[2024-05-02] MEDS ORDERED: PERCOCET PO (15:54)
[2024-05-02] MEDS ORDERED: BACT800T5 PO (15:54)
[2024-05-02] MEDS ORDERED: COLA100C5 PO (15:54)
[2024-05-02] MEDS: ACETAMINOPHEN TAB 650MG DOSE (2X325MG) PO PRN (17:01)
== END 2024-05-02 17:03 | disposition home or self-care (01) ==
LOC: M OR 10:19 → UNDOADMIN 10:19 → M SDC 10:19 → EDSTATUS 12:00 → M MS5PR 21:30 → M OR 21:30 → M SDC 05-02 17:03 → UNDODISIN 05-02 17:03
PROVIDERS: ATTEND Urology
DX: C61 Malignant neoplasm of prostate (principal); E11.9 Type 2 diabetes mellitus without complications; F43.10 Post-traumatic stress disorder, unspecified; G47.30 Sleep apnea, unspecified; Z88.0 Allergy status to penicillin; Z88.1 Allergy status to other antibiotic agents; Z79.899 Other long term (current) drug therapy
CPT/HCPCS: 36415; 38571; 55866; 80048; 85027; 86850; 86900; 86901; 88305; 88309; 96372; 96374; 96376; J0131; J0360; J0665; J0690; J1100; J1170; J1596; J1815; J1920; J2405; J3010; S2900

== ENCOUNTER → 2024-06-07 | Outpatient (CLI) | payer MEDICARE, BC ==
[~2024-06-07] MED LIST changes: -ACETAMINOPHEN 1000MG 100ML IV BAG As Ordered ONE; +BACT800T5 PO; +COLA100C5 PO; +GLIM1TAB84 PO; -LIDOCAINE 2% 100MG/5ML SDV (FOR ANES.) As Ordered ONE; -ONDANSETRON 4MG 2ML VIAL As Ordered ONE; +PERCOCET PO; -ROCURONIUM BROMIDE 50MG/5ML VIAL As Ordered ONE; +SILD100T PO; -fentaNYL 100 MCG/2 ML INJECTION As Ordered ONE; -propofoL 200 MG/20 ML VIAL As Ordered ONE
== END ==
LOC: M PLALAB 09:39
PROVIDERS: ATTEND Physician Assistant
DX: C61 Malignant neoplasm of prostate (principal)

== ENCOUNTER → 2024-07-17 | Outpatient (CLI) | payer MEDICARE, BC ==
[2024-07-17 13:14] LABS: HEMATOCRIT 44.6 % (42.0-52.0); HEMOGLOBIN 14.9 g/dl (13.5-17.5); MEAN CORPUSCULAR HEMOGLOBIN 30.3 pg (27.0-33.0); MEAN CORPUSCULAR HGB CONC 33.4 g/dl (32.0-36.5); MEAN CORPUSCULAR VOLUME 90.7 fl (80.0-96.0); PLATELET COUNT, AUTOMATED 277 10^3/uL (150-450); RED BLOOD COUNT 4.92 10^6/uL (4.30-6.10); WHITE BLOOD COUNT 9.6 10^3/uL (4.0-10.0)
== END ==
LOC: M PLALAB 09:21
PROVIDERS: ATTEND Physician Assistant Medical
DX: J40 Bronchitis, not specified as acute or chronic (principal)

== ENCOUNTER → 2024-09-26 | Outpatient (CLI) | payer MEDICARE, BC | LOC: M PLALAB 10:39 | PROVIDERS: ATTEND Urology | DX: C61 Malignant neoplasm of prostate (principal) ==

== ENCOUNTER → 2024-09-26 | Outpatient (CLI) | payer MEDICARE, BC ==
[2024-09-26 14:37] LABS: BASO % 0.4 % (0.0-1.0); EOS # 0.1 10^3/uL (0.0-0.5); EOS % 1.4 % (0.0-3.0); HEMATOCRIT 49.3 % (42.0-52.0); HEMOGLOBIN 16.6 g/dl (13.5-17.5); LYMPH # 3.2 10^3/uL (1.5-5.0); LYMPH % 34.5 % (24.0-44.0); MEAN CORPUSCULAR HEMOGLOBIN 30.1 pg (27.0-33.0); MEAN CORPUSCULAR HGB CONC 33.7 g/dl (32.0-36.5); MEAN CORPUSCULAR VOLUME 89.5 fl (80.0-96.0); MONO # 0.7 10^3/uL (0.0-0.8); MONO % 7.6 % (2.0-8.0); NEUTROPHILS # 5.1 10^3/uL (1.5-8.5); PLATELET COUNT, AUTOMATED 252 10^3/uL (150-450); RED BLOOD COUNT 5.51 10^6/uL (4.30-6.10); WHITE BLOOD COUNT 9.2 10^3/uL (4.0-10.0)
[2024-09-26 15:08] LABS: THYROID STIMULATING HORMONE 2.106 uIU/ML (0.55-4.78)
[2024-09-26 15:10] LABS: FERRITIN 166.8 NG/ML (10.5-307.3)
[2024-09-26 15:11] LABS: VITAMIN B12 LEVEL 692 PG/ML (211-911)
[2024-09-26 15:12] LABS: TOTAL 25(OH) VITAMIN D 28.9 NG/ML (20.0-100.0)
[2024-09-26 15:16] LABS: ALBUMIN 4.1 G/DL (3.2-5.2); ALKALINE PHOSPHATASE 80 U/L (40-129); ALT/SGPT 20 U/L (7.0-40); AST/SGOT 14 U/L (<34); BILIRUBIN,TOTAL 0.7 MG/DL (0.3-1.2); BLOOD UREA NITROGEN 26 MG/DL (9-23); CALCIUM LEVEL 9.6 MG/DL (8.3-10.6); CARBON DIOXIDE LEVEL 30 MMOL/L (20-31); CHLORIDE LEVEL 102 MMOL/L (98-107); CREATININE FOR GFR 0.97 MG/DL (0.70-1.30); GLOMERULAR FILTRATION RATE > 60.0 (>42); GLUCOSE, FASTING 207 MG/DL (74-106); POTASSIUM SERUM 4.2 MMOL/L (3.5-5.1); PTH INTACT 21.3 PG/ML (18.5-88.0); SODIUM LEVEL 140 MMOL/L (136-145); TOTAL PROTEIN 7.5 G/DL (5.7-8.2)
== END ==
LOC: M PLALAB 10:42
PROVIDERS: ATTEND Family Medicine
DX: E53.8 Deficiency of other specified B group vitamins (principal); E11.9 Type 2 diabetes mellitus without complications; I10 Essential (primary) hypertension; E55.9 Vitamin D deficiency, unspecified

== ENCOUNTER → 2025-01-04 | Outpatient (CLI) | payer MEDICARE, BC ==
[~2025-01-04] MED LIST changes: -FLOM0.4C39 PO; +TAMS-18 PO
== END ==
LOC: M PLALAB 10:40
PROVIDERS: ATTEND Urology
DX: C61 Malignant neoplasm of prostate (principal)

== ENCOUNTER 2025-03-20 13:39 | Day surgery (SDC) | payer MEDICARE, BC ==
[~2025-03-20] VITALS: Ht 167.6 cm; Wt 95.7 kg
[2025-03-20] MEDS ORDERED: IPRATROPIUM 0.5 MG/ALBUTEROL 2.5 MG INH SOL UD 3 ML As Ordered ONE (14:57)
[2025-03-20] MEDS: IPRATROPIUM 0.5 MG/ALBUTEROL 2.5 MG INH SOL UD 3 ML NEB ONE (15:00)
[2025-03-20] MEDS ORDERED: LIDOCAINE 2% 100 MG/5 ML SDV (FOR ANES.) As Ordered ONE (15:52)
[2025-03-20 16:10] VITALS: TEMP 98.6
[2025-03-20 16:26] VITALS: BP 169/75; O2SAT 93
== END 2025-03-20 16:36 | disposition home or self-care (01) ==
LOC: M OPP 13:39
PROVIDERS: ATTEND Internal Medicine Gastroenterology
DX: K22.2 Esophageal obstruction (principal); K44.9 Diaphragmatic hernia without obstruction or gangrene; R13.10 Dysphagia, unspecified; G47.30 Sleep apnea, unspecified; Z88.0 Allergy status to penicillin; Z88.1 Allergy status to other antibiotic agents; Z88.8 Allergy status to other drugs, medicaments and biological substances; Z79.84 Long term (current) use of oral hypoglycemic drugs; Z79.899 Other long term (current) drug therapy; J45.909 Unspecified asthma, uncomplicated

== ENCOUNTER → 2025-04-15 | Outpatient (CLI) | payer MEDICARE, BC | LOC: M PLALAB 12:09 | PROVIDERS: ATTEND Urology | DX: C61 Malignant neoplasm of prostate (principal) ==

== ENCOUNTER → 2025-08-21 | Outpatient (REF) | payer MEDICARE, BC | LOC: M SFHCPLAZ 12:58 | PROVIDERS: ATTEND Nurse Practitioner Adult Health | DX: R09.89 Other specified symptoms and signs involving the circulatory and respiratory systems (principal) ==